=== PATIENT | female | born 1955 | race Caucasian/White ===

== ENCOUNTER 2017-02-27 15:56 | Outpatient (RCR) | payer OTHER ==
[~2017-02-27 15:56] MED LIST: ACIPHEX20 MG PO; ALBUTEROL0.63 MG/3; ASPIRIN CHEW81 MG PO; ASPIRIN325 MG PO; ATENOLOL; ATENOLOL50 MG PO; COMBIVENT RESPIM4 GM IH; LOVASTATIN20 MG PO; NITROFURANTOIN100 MG PO; NITROGLYCERIN0.4 MG PO; NITROGLYCERIN2.5 MG PO; PLAVIX75 MG PO; PREDNISONE10 MG PO; PREDNISONE20 MG PO; RANEXA500 MG PO; SYMBICORT 16010.2 GM; Z.0.ACIPHEX20 MG; Z.0.ASPIRIN CHEW81 M; Z.0.COMBIVENT INH14.; Z.0.CRESTOR5 MG; ZITHROMAX250 MG PO; [UNRECOGNIZED DRUG - OTHER] PO; [UNRECOGNIZED DRUG - OTHER] PO; nitroglycerin PO
== END 2017-03-26 ==
LOC: PT 15:56
PROVIDERS: ATTEND Specialist
DX: M75.42 Impingement syndrome of left shoulder (principal); M75.41 Impingement syndrome of right shoulder; M25.512 Pain in left shoulder; M25.511 Pain in right shoulder; M25.612 Stiffness of left shoulder, not elsewhere classified; M25.611 Stiffness of right shoulder, not elsewhere classified; M62.81 Muscle weakness (generalized)

== ENCOUNTER 2017-04-15 00:34 | Emergency (ER) | payer OTHER ==
[~2017-04-15] VITALS: Ht 172.7 cm; Wt 67.6 kg
[2017-04-15] MEDS ORDERED: PANTOPRAZOLE 40 MG 10ML VIAL IV STA (00:59)
[2017-04-15] MEDS ORDERED: SODIUM CHLORIDE 0.9% 1000ML 1,000 ML IV STA (00:59)
[2017-04-15] MEDS ORDERED: ONDANSETRON HCL INJ 2 MG/ML VIAL IV STA (00:59)
[2017-04-15 01:14] LABS: BASOPHILS # (AUTO) 0.1 (0.0-0.1); BASOPHILS % 0.7 % (0.0-1.0); BILIRUBIN,URINE NEGATIVE (NEGATIVE); EOSINOPHILS # (AUTO) 0.2 (0.0-0.4); EOSINOPHILS % 2.2 % (0.0-6.0); HEMATOCRIT 42.4 % (34.2-44.1); HEMOGLOBIN 14.6 g/dL (12.0-16.0); KETONES,URINE NEGATIVE (NEGATIVE); LEUKOCYTE ESTERASE ,URINE TRACE (NEGATIVE); LYMPHOCYTES # (AUTO) 2.8 (1.0-3.2); LYMPHOCYTES % 28.8 % (18.0-39.1); MEAN CORPUSCULAR HEMOGLOBIN 32.7 pg (28-32); MEAN CORPUSCULAR HGB CONC 34.4 g/dL (31-35); MEAN CORPUSCULAR VOLUME 95.1 fL (81-99); MONOCYTES % 9.7 % (4.4-11.3); NEUTROPHILS # (AUTO) 5.7 (2.1-6.9); NEUTROPHILS % 58.3 % (38.7-80.0); NITRITE,URINE NEGATIVE (NEGATIVE); PLATELET COUNT 263 x10e3/uL (140-360); PROTEIN,URINE DIPSTICK NEGATIVE (NEGATIVE); RED BLOOD COUNT 4.46 x10e6/uL (3.6-5.1); RED CELL DISTRIBUTION WIDTH 11.7 % (11.7-14.4); URINE UROBILINOGEN 4 mg/dL (0.2 - 1)
[2017-04-15 01:15] LABS: CLARITY,URINE CLEAR (CLEAR); COLOR,URINE YELLOW (YELLOW)
[2017-04-15 01:20] LABS: AMPHETAMINES SCREEN,URINE NEGATIVE (NEGATIVE); BENZODIAZEPINES SCREEN,URINE NEGATIVE (NEGATIVE); PHENCYCLIDINE SCREEN,URINE NEGATIVE (NEGATIVE)
[2017-04-15 01:22] LABS: BACTERIA,URINE RARE /HPF; EPITHELIAL CELLS,URINE RARE /LPF; MUCUS,URINE FEW (RARE); RBC,URINE 0-5 /HPF (0-5); WBC,URINE (MAN) 0-5 /HPF (0-5)
[2017-04-15 01:24] LABS: INR 0.86; PARTIAL THROMBOPLASTIN TIME 30.4 seconds (23.8-35.5); PROTHROMBIN TIME 12.2 seconds (11.9-14.5)
[2017-04-15 01:32] LABS: ALANINE AMINOTRANSFERASE 10 IU/L (0-55); ALBUMIN 3.8 g/dL (3.5-5.0); ALBUMIN/GLOBULIN RATIO 1.3 (0.8-2.0); ALKALINE PHOSPHATASE 119 IU/L (40-150); AMYLASE 43 U/L (25-125); ANION GAP 12.9 mmol/L (8-16); BLOOD UREA NITROGEN 16 mg/dL (7-26); BUN/CREATININE RATIO 20 (6-25); CALCIUM 9.2 mg/dL (8.4-10.2); CARBON DIOXIDE 22 mmol/L (22-29); CHLORIDE 109 mmol/L (98-107); CREATINE KINASE 81 IU/L (29-168); EST GLOMERULAR FILTRATION RATE > 60 ML/MIN (60-); GLUCOSE 109 mg/dL (74-118); LIPASE 21 U/L (8-78); MAGNESIUM 2.1 MG/DL (1.3-2.1); POTASSIUM 3.9 mmol/L (3.5-5.1); SODIUM 140 mmol/L (136-145)
[2017-04-15 01:52] LABS: THYROID STIMULATING HORMONE 4.227 uIU/mL (0.350-4.940)
--- NOTE | 2017-04-15 02:09 | Diagnostic Imaging Report ---
EXAMINATION: CHEST 2 VIEWS INDICATION: Chest pain, nausea, vomiting COMPARISON: 11/08/2015 FINDINGS: TUBES and LINES: None. LUNGS: Hyperinflation of the lungs with areas of bullous changes at the lung bases. Minimal right mid lung and right lung base scarring. There is no evidence of pneumonia or pulmonary edema. PLEURA: No pleural effusion or pneumothorax. HEART AND MEDIASTINUM: The cardiomediastinal silhouette is unremarkable. BONES AND SOFT TISSUES: No acute osseous lesion. Soft tissues are unremarkable. UPPER ABDOMEN: No free air under the diaphragm. IMPRESSION: No acute thoracic abnormality. Signed by: Dr. Son Skelton M.D. on 04/15/2017 2:06 AM
--- NOTE | 2017-04-15 02:11 | Diagnostic Imaging Report ---
EXAM: ABDOMEN COMP INCL UPR or DECUB DATE: 04/15/2017 12:59 AM Time stamp on exam: 0107 hours INDICATION: Nausea, vomiting COMPARISON: CTA of the abdomen and pelvis on 12/02/2015 FINDINGS: LINES/TUBES: None BOWEL PATTERN: No evidence for obstruction. SOFT TISSUES: Cholecystectomy clips. There are 2 S1 and to the symphysis anchor screws present LUNG BASES: Lung bases are clear with minimal blunting of the right costophrenic angle BONES: No acute findings. IMPRESSION: Nonobstructive bowel gas pattern. Signed by: Dr. Son Skelton M.D. on 04/15/2017 2:08 AM
--- NOTE | 2017-04-15 03:51 | Diagnostic Imaging Report ---
EXAM: CT Abdomen and Pelvis WITH contrast INDICATION: Abdominal pain, nausea, vomiting COMPARISON: None. TECHNIQUE: Abdomen and pelvis were scanned utilizing a multidetector helical scanner from the lung base to the pubic symphysis after administration of IV contrast. Coronal and sagittal reformations were obtained. Routine protocol was performed. Scan was performed when during portal venous phase. IV CONTRAST: 100 mL of Isovue-370 ORAL CONTRAST: Water RADIATION DOSE: Total DLP: 265 mGy*cm Estimated effective dose: (DLP x 0.015 x size factor) mSv COMPLICATIONS: None FINDINGS: LINES and TUBES: None. LOWER THORAX: Small hiatal hernia HEPATOBILIARY: No focal hepatic lesions. No biliary ductal dilation. GALLBLADDER: There are cholecystectomy clips. SPLEEN: No splenomegaly. PANCREAS: No focal masses or ductal dilatation. ADRENALS: No adrenal nodules KIDNEYS/URETERS: Kidneys enhance symmetrically. No hydronephrosis. No cystic or solid mass lesions. No stones. GI TRACT: No abnormal distention, wall thickening, or evidence of bowel obstruction. Appendix is not clearly identified. There is however no fat stranding or adenopathy in the right lower quadrant to suggest appendicitis. PELVIC ORGANS/BLADDER: There are postop changes of hysterectomy and bilateral oophorectomies. LYMPH NODES: No lymphadenopathy. VESSELS: There is moderate atherosclerotic disease in the aorta and major arterial branches. PERITONEUM / RETROPERITONEUM: No free air or fluid. BONES: There are mild degenerative changes in the lumbar spine. SOFT TISSUES: Unremarkable. IMPRESSION: 1. No evidence of acute intra-abdominal or pelvic abnormality. Signed by: Dr. Son Skelton M.D. on 04/15/2017 3:48 AM
--- NOTE | 2017-04-15 04:27 | Diagnostic Imaging Report ---
EXAMINATION: Head CT without contrast. HISTORY:Headache, nausea and vomiting. COMPARISON:CT brain from 11/08/2015. TECHNIQUE: Multidetector axial images were obtained from the foramen magnum to the vertex without contrast. The images were reconstructed using brain and bone algorithms. Thin section brain images were reformatted into coronal and sagittal planes. Intravenous contrast: None IMAGE QUALITY: Acceptable. FINDINGS: Skull/scalp: No abnormality. Parenchyma: Nonspecific bilateral frontoparietal confluent and patchy white matter hypodensity are likely related to small vessel ischemic changes. No acute hemorrhage, mass or acute major vascular territorial infarct. Arteries: Atherosclerotic calcification in bilateral carotid siphon. Dural sinuses: No abnormal density suggestive of thrombosis. Ventricles: No hydrocephalus or displacement. Extra-axial spaces: No abnormal density. Brain volume: Normal for age. Craniocervical junction: No mass, Chiari malformation, or basilar invagination. Sella: No mass. Paranasal/mastoid sinuses: Imaged portions unremarkable. IMPRESSION: No acute intracranial abnormality. Mild to moderate supratentorial white matter microvascular ischemic changes. Signed by: Dr. Kia Castellanos M.D. on 04/15/2017 4:24 AM
[2017-04-15] MEDS ORDERED: MORPHINE SULFATE 2 MG/ML SYR IV STA (04:50)
[2017-04-15] MEDS ORDERED: PROMETHAZINE 12.5MG/ NACL 0.9% 12.5 MG/50 ML BAG IV ONE (05:00)
[2017-04-15 05:26] LABS: CREATINE KINASE MB 1.2 ng/mL (0.00-5.00)
[2017-04-15] MEDS ORDERED: DICYCLOMINE HCL20 MG PO (05:51)
[2017-04-15] MEDS ORDERED: ZOFRAN ODT4 MG PO (05:51)
[2017-04-15 06:01] VITALS: BP 136/75
[2017-04-15] MEDS ORDERED: SODIUM CHLORIDE 0.9% 50ML 50 ML ONE (09:23)
[2017-04-15] MEDS ORDERED: IOPAMIDOL 370 MG/ML 200 ML INFUS..BTL INJ ONE (09:23)
== END 2017-04-15 06:07 | disposition home or self-care (01) ==
LOC: ER 00:36
DX: R10.816 Epigastric abdominal tenderness (principal); R10.84 Generalized abdominal pain; R11.2 Nausea with vomiting, unspecified; M75.22 Bicipital tendinitis, left shoulder; I10 Essential (primary) hypertension; I51.9 Heart disease, unspecified; J44.9 Chronic obstructive pulmonary disease, unspecified; I50.9 Heart failure, unspecified; I25.10 Atherosclerotic heart disease of native coronary artery without angina pectoris; K21.9 Gastro-esophageal reflux disease without esophagitis; I25.2 Old myocardial infarction
CPT/HCPCS: 36415; 70450; 71020; 74020; 74177; 80053; 80307; 81001; 82150; 82550; 82553; 83690; 83735; 83880; 84443; 84484; 85025; 85610; 85730; 87086; 87400; 93005; 96360; 96374; 96376; 99284; J2270; J2405; J2550; J7030; Q9967; 71046; 74021

== ENCOUNTER → 2017-07-14 | Outpatient (CLI) | payer OTHER ==
[~2017-07-14] MED LIST changes: +DICYCLOMINE HCL20 MG PO; +ZOFRAN ODT4 MG PO
--- NOTE | 2017-07-14 12:42 | Diagnostic Imaging Report ---
PROCEDURE: X-RAY UPPER GI SERIES WITH AIR CONTRAST TECHNIQUE: Effervescent crystals and barium were ingested by mouth. Multiple fluoroscopic spot images of the esophagus, stomach, and proximal small bowel were obtained. Fluoroscopy time: 2 minutes Air Kerma: 58.46 mGy COMPARISON: CT abdomen and pelvis with contrast 04/15/2017.. INDICATIONS: DYSPHAGIA FINDINGS: ESOPHAGUS: Motility: Within normal limits. Mucosa: Unremarkable. Distensibility: Normal. GASTROESOPHAGEAL JUNCTION: Small sliding hiatal hernia. GASTROESOPHAGEAL REFLUX: None observed. STOMACH: Normally distensible and demonstrates normal contours and mucosal pattern. Mild prominence of the mucosal folds is a consequence of inadequate distention. Postsurgical changes of Funmilayo fundoplication. DUODENUM: Bulb and sweep are normal. Duodenal-jejunal junction is in the normal expected position. IMPRESSION: Post surgical changes of fundoplication with recurrent hiatal hernia. Dictated by: David Osuna M.D. on 07/14/2017 at 12:43 Electronically approved by: David Osuna M.D. on 07/14/2017 at 12:43
== END ==
LOC: DX 08:19
PROVIDERS: ATTEND Internal Medicine Gastroenterology
DX: R13.10 Dysphagia, unspecified (principal); Z68.23 Body mass index [BMI] 23.0-23.9, adult; Z71.3 Dietary counseling and surveillance; F17.200 Nicotine dependence, unspecified, uncomplicated
CPT/HCPCS: 74246

== ENCOUNTER 2017-09-25 21:57 | Observation (INO) | payer OTHER ==
[~2017-09-25] VITALS: Ht 172.7 cm; Wt 68.5 kg
[2017-09-25 23:04] LABS: BASOPHILS # (AUTO) 0.1 (0.0-0.1); BASOPHILS % 0.8 % (0.0-1.0); EOSINOPHILS # (AUTO) 0.3 (0.0-0.4); EOSINOPHILS % 3.1 % (0.0-6.0); HEMATOCRIT 42.3 % (34.2-44.1); LYMPHOCYTES # (AUTO) 3.1 (1.0-3.2); LYMPHOCYTES % 34.2 % (18.0-39.1); MEAN CORPUSCULAR HEMOGLOBIN 33.1 pg (28-32); MEAN CORPUSCULAR HGB CONC 35.5 g/dL (31-35); MEAN CORPUSCULAR VOLUME 93.4 fL (81-99); MONOCYTES % 10.4 % (4.4-11.3); NEUTROPHILS # (AUTO) 4.7 (2.1-6.9); NEUTROPHILS % 51.3 % (38.7-80.0); PLATELET COUNT 229 x10e3/uL (140-360); RED BLOOD COUNT 4.53 x10e6/uL (3.6-5.1); RED CELL DISTRIBUTION WIDTH 11.7 % (11.7-14.4)
[2017-09-25 23:09] LABS: PROTHROMBIN TIME 12.4 seconds (11.9-14.5)
[2017-09-25 23:10] LABS: PARTIAL THROMBOPLASTIN TIME 31.4 seconds (23.8-35.5)
[2017-09-25 23:19] LABS: ALANINE AMINOTRANSFERASE 16 IU/L (0-55); ALBUMIN/GLOBULIN RATIO 1.5 (0.8-2.0); ALKALINE PHOSPHATASE 123 IU/L (40-150); BLOOD UREA NITROGEN 14 mg/dL (7-26); CALCIUM 9.4 mg/dL (8.4-10.2); CARBON DIOXIDE 21 mmol/L (22-29); CHLORIDE 109 mmol/L (98-107); CREATINE KINASE 104 IU/L (29-168); GLUCOSE 123 mg/dL (74-118); MAGNESIUM 2.3 MG/DL (1.3-2.1); SODIUM 140 mmol/L (136-145)
[2017-09-25 23:29] LABS: BUN/CREATININE RATIO 18 (6-25)
[2017-09-25 23:32] LABS: CLARITY,URINE CLEAR (CLEAR); COLOR,URINE YELLOW (YELLOW); KETONES,URINE NEGATIVE (NEGATIVE); LEUKOCYTE ESTERASE ,URINE NEGATIVE (NEGATIVE); NITRITE,URINE NEGATIVE (NEGATIVE); PROTEIN,URINE DIPSTICK NEGATIVE (NEGATIVE)
[2017-09-25 23:33] LABS: BACTERIA,URINE FEW /HPF; BILIRUBIN,URINE NEGATIVE (NEGATIVE); EPITHELIAL CELLS,URINE FEW /LPF; MUCUS,URINE MANY (RARE); RBC,URINE 0-5 /HPF (0-5); URINE UROBILINOGEN 0.2 mg/dL (0.2 - 1)
--- NOTE | 2017-09-25 23:36 | Diagnostic Imaging Report ---
EXAM: CHEST SINGLE (PORTABLE), AP 1 view INDICATION: Midsternal chest pain COMPARISON: PA and lateral view of the chest April 15, 2017 FINDINGS: LINES/TUBES: None LUNGS: No consolidations or edema. Stable scarring right midlung. PLEURA: No effusions or pneumothorax. HEART AND MEDIASTINUM: Normal size and contour. BONES AND SOFT TISSUES: No acute findings. IMPRESSION: No acute thoracic abnormality. Signed by: Dr. Mariela Browne M.D. on 09/25/2017 11:32 PM
[2017-09-25] MEDS ORDERED: NITROGLYCERIN 2% OINT 1 GM PKT TOP ONE (23:45)
[2017-09-25 23:53] LABS: EST GLOMERULAR FILTRATION RATE > 60 ML/MIN (60-)
[2017-09-26] VITALS (8 sets, daily range): BP systolic 121–165; BP diastolic 73–90
[2017-09-26] MEDS ORDERED: MORPHINE SULFATE 2 MG/ML SYR IV STA
[2017-09-26] MEDS: FAMOTIDINE 20 MG/2 ML VIAL IV SCH ×2 (01:00→13:38)
[2017-09-26] MEDS ORDERED: ONDANSETRON HCL INJ 2 MG/ML VIAL IV PRN (01:00)
[2017-09-26] MEDS ORDERED: IPRATROPIUM BROMIDE 0.02% 2.5 ML NEB NEB PRN (01:00)
[2017-09-26] MEDS ORDERED: ALBUTEROL SULF 0.083% NEB SOLN 3 ML NEB NEB PRN ×2 (01:00→09:45)
[2017-09-26] MEDS: IPRATROPIUM/ALBUTEROL SULFATE 4 GM INH INH SCH ×4 (01:50→19:15)
[2017-09-26] MEDS ORDERED: NITROGLYCERIN 2% OINT 1 GM PKT TOP SCH (06:00)
[2017-09-26 06:59] LABS: CREATINE KINASE 97 IU/L (29-168)
[2017-09-26] MEDS ORDERED: ASPIRIN 81 MG ENTERIC COATED PO SCH (09:00)
[2017-09-26] MEDS ORDERED: ONDANSETRON HCL 4 MG ORAL DISINTEGRATING TAB PO PRN (09:45)
[2017-09-26] MEDS ORDERED: DICYCLOMINE HCL 20 MG TAB PO PRN (09:45)
[2017-09-26] MEDS: CLOPIDOGREL BISULFATE 75 MG TAB PO SCH (10:22)
[2017-09-26] MEDS ORDERED: ASPIRIN 81 MG CHEW TAB PO SCH (10:30)
--- NOTE | 2017-09-26 10:40 | History and Physical ---
She is a 62-year-old female patient of mine presented to the emergency room with the complaint of retrosternal chest pain and chest tightness. HISTORY OF PRESENT ILLNESS: Ms. Jacqueline Newsome is a 62-year-old female patient with a previous significant history of coronary artery disease and active smoker, COPD, severe GERD, anxiety, presented to the emergency room with the complaint of retrosternal chest tightness. The patient is feeling like she is being squeezed by somebody. The patient also has mild shortness of breath along with chest pain. The patient said the pain is radiating to her back. The patient denies any fever. The patient had similar symptoms in the past. The patient had significant medical history. The patient had multiple cardiac caths done. The patient is giving a vague history that probably she had a last cardiac cath done at [facility] by . She had some lesions, but advised to have medical therapy because of technical inoperable issues. PAST MEDICAL HISTORY: Other medical history is hypertension, heart disease, GERD, kidney stones, back pain. PAST SURGICAL HISTORY: Appendectomy, , carpal tunnel surgery, cholecystectomy, colonoscopy, hiatal hernia repair, hysterectomy, tonsillectomy. MEDICATIONS: See from the list. SOCIAL HISTORY: Patient smokes. Denies any alcohol. ALLERGIES: THE PATIENT IS ALLERGIC TO LATEX. REVIEW OF SYSTEMS: As per history of present illness. Chest pain and tightness. PHYSICAL EXAMINATION VITALS: Temperature 98, pulse 80, respirations 16, blood pressure 110/72. HEENT: Normocephalic and atraumatic. NECK: Supple. No lymphadenopathy. LUNGS: Bilateral fair air entry. No rales. No rhonchi. HEART: S1 and S2 regular. Systolic murmur present. ABDOMEN: Bowel sounds are normal. NEUROLOGICAL: No focal neurological deficits. The patient is alert and oriented times 3. EKG with ST-elevation in septal leads. ADMITTING IMPRESSION/DIAGNOSES 1. Unstable angina: Rule out myocardial infarction. 2. Chronic obstructive pulmonary disease. 3. History of coronary artery disease. The patient was admitted with the above diagnoses. Will do serial cardiac enzymes. Obtain cardiology consultation with Dr. Silvestre Egn. The patient will get probably a stress test and heart cath. Job#: [id number] [place]
[2017-09-26] MEDS: BUDESONIDE/FORMOTEROL 160/4.5MCG INHALER INH SCH ×2 (11:00→19:15)
[2017-09-26] MEDS: MORPHINE SULFATE 2 MG/ML SYR IV PRN ×2 (11:04→19:15)
[2017-09-26] MEDS ORDERED: CLOPIDOGREL BISULFATE 75 MG TAB PO ONE (13:00)
--- NOTE | 2017-09-26 13:23 | Consultation ---
DATE OF CONSULTATION: September 26, 2017 CARDIAC CONSULTATION REASON FOR CONSULTATION: Chest pain. HISTORY: This consult is done on behalf of Dr. Silvestre Eng, who is her telephoto engineer. This is a 62-year-old lady who is known with multiple health problems including COPD, smoker, severe GERD and anxiety. Patient came to this institution with chest pain. She had several admissions in the last few years for chest pain. She had at least 3 or 4 cardiac catheterizations. Most recent one was in August last year by Dr. Pratt. She had been told she has 70% and 80% disease, but they are in very small arteries and she does not need surgery and she does not need stents. The patient is followed also by Dr. Silvestre Eng. She was in [facility] when she had the cardiac cath. She had admission in April to [facility] again with chest pain. Patient was in her usual status of health. She described her chest pain seems to be very typical, retrosternal, radiating to her back and to her jaw. Surprisingly about her symptoms, they happened in episodes. They come for 1 or 2 months and then disappear. Latest exacerbation was in last year August and in April of this year. Now, again, she started having the same pain. Pain can come anytime with and without activity. It is very typical in location and radiation to the jaw. The patient took nitroglycerin, which helped her. She takes usually nitroglycerin patch at home. She takes also Plavix. Unfortunately, she continues to smoke. REVIEW OF SYSTEMS: Extensive to all systems. Only pertinent positive and negative ones will be mentioned. CARDIAC: As per above. PULMONARY: No recent travel. No pleuritic chest pain. No cough. No hemoptysis. She does have also some pain on the right lower chest. She was seen by Dr. Rex Eng, and she had negative CT scan. GI: Severe GERD. No hematemesis. No melena. : Increased frequency of urination. MUSCULAR: Aches and pain. NEUROLOGICAL: No seizure activity. Occasional headaches. ENDOCRINE: No diabetes mellitus. HEENT: Congestion. PAST MEDICAL HISTORY 1. Hypertension. 2. GERD. 3. Kidney stone. 4. Appendectomy. 5. . 6. Carpal tunnel surgery. 7. Cholecystectomy. 8. Hernia repair. 9. Back pain. 10. Chest pain with at least 4 cardiac caths over the last few years. ALLERGIES: LATEX. FAMILY HISTORY: Father had myocardial infarction at a young age at age 43. A sister had already bypass in her 60s. One brother had pacemaker. SOCIAL HISTORY: She is . She is a smoker. Not an alcohol drinker. PHYSICAL EXAMINATION GENERAL: Well-built lady in no acute distress. VITALS: Blood pressure 130/80. Heart rate of 80. Respiratory rate of 18. HEENT: Pupils are equal and reactive. NECK: No elevation of jugular venous pulsation. No bruit. CHEST: Clear to auscultation and percussion. HEART: PMI at 5th left intercostal space. Normal 1st and 2nd heart sounds. ABDOMEN: Soft with good bowel sounds. No organomegaly. No abdominal bruits. EXTREMITIES: No cyanosis. No clubbing. No edema. NEUROLOGIC: Awake, alert, oriented. No motor or sensory deficits. HOME MEDICATIONS: Combivent, Symbicort, dicyclomine, Zofran, atenolol 50 mg a day, nitroglycerin patch, Aciphex, Plavix 75 mg a day. IMPRESSION AND PLAN 1. Chest pain, seems to be very typical for angina. However, workup is negative by repeated cardiac cath and stress test, although with the last cardiac cath, she was told she got 2 diseased arteries but in small branches. 2. Gastroesophageal reflux disease. 3. Anxiety. 4. Hypertension. 5. Kidney stone. 6. Smoker. 7. Chronic obstructive pulmonary disease. Cardiac-mclain, serial cardiac enzymes to be done. Will try to get the cardiac cath from the other physician and other institution. Patient needs to have stress test at least. However, if the previous cath shows significant disease, then further steps to be done. All this discussed and explained to the patient and her . Questions are answered. Job#: [id number]
[2017-09-26 14:58] LABS: CREATINE KINASE MB 0.8 ng/mL (0-5.0)
[2017-09-26] MEDS: NITROGLYCERIN 6.5 MG PO SCH ×2 (15:00→20:58)
[2017-09-26] MEDS ORDERED: NITROGLYCERIN 0.4 MG SUBL SL SCH (15:00)
[2017-09-26] MEDS ORDERED: NON-FORMULARY MEDICATION (Lovastatin 20 MG) PO SCH (21:00)
[2017-09-26] MEDS ORDERED: SIMVASTATIN 20 MG TAB PO SCH (21:00)
[2017-09-27] MEDS: MORPHINE SULFATE 2 MG/ML SYR IV PRN (01:06)
[2017-09-27] MEDS: FAMOTIDINE 20 MG/2 ML VIAL IV SCH ×2 (01:06→13:00)
[2017-09-27 04:00] VITALS: BP 151/86
[2017-09-27 06:48] LABS: ALANINE AMINOTRANSFERASE 14 IU/L (0-55); ALBUMIN 3.8 g/dL (3.5-5.0); ALBUMIN/GLOBULIN RATIO 1.5 (0.8-2.0); ALKALINE PHOSPHATASE 111 IU/L (40-150); BLOOD UREA NITROGEN 16 mg/dL (7-26); BUN/CREATININE RATIO 20 (6-25); CALCIUM 9.2 mg/dL (8.4-10.2); CARBON DIOXIDE 27 mmol/L (22-29); CHLORIDE 103 mmol/L (98-107); CREATININE, SERUM 0.81 mg/dL (0.57-1.11); EST GLOMERULAR FILTRATION RATE > 60 ML/MIN (60-); GLUCOSE 89 mg/dL (74-118); SODIUM 136 mmol/L (136-145)
[2017-09-27 07:00] VITALS: BP 148/88
[2017-09-27 07:07] LABS: BASOPHILS # (AUTO) 0.1 (0.0-0.1); BASOPHILS % 0.7 % (0.0-1.0); EOSINOPHILS # (AUTO) 0.2 (0.0-0.4); EOSINOPHILS % 3.1 % (0.0-6.0); HEMATOCRIT 41.2 % (34.2-44.1); HEMOGLOBIN 14.5 g/dL (12.0-16.0); LYMPHOCYTES # (AUTO) 2.2 (1.0-3.2); MEAN CORPUSCULAR HEMOGLOBIN 32.9 pg (28-32); MEAN CORPUSCULAR HGB CONC 35.2 g/dL (31-35); MEAN CORPUSCULAR VOLUME 93.4 fL (81-99); MONOCYTES # (AUTO) 0.7 (0.2-0.8); MONOCYTES % 9.4 % (4.4-11.3); NEUTROPHILS # (AUTO) 4.1 (2.1-6.9); NEUTROPHILS % 56.4 % (38.7-80.0); PLATELET COUNT 220 x10e3/uL (140-360); RED BLOOD COUNT 4.41 x10e6/uL (3.6-5.1); RED CELL DISTRIBUTION WIDTH 11.4 % (11.7-14.4)
[2017-09-27 07:15] LABS: CHOL/HDL RATIO 5.3 (3.0-3.6); THYROID STIMULATING HORMONE 2.975 uIU/mL (0.350-4.940)
[2017-09-27] MEDS ORDERED: PANTOPRAZOLE SOD 40 MG TABEC PO SCH (07:30)
[2017-09-27 08:00] VITALS: BP 148/88
[2017-09-27] MEDS: BUDESONIDE/FORMOTEROL 160/4.5MCG INHALER INH SCH (08:15)
[2017-09-27] MEDS: IPRATROPIUM/ALBUTEROL SULFATE 4 GM INH INH SCH (08:15)
[2017-09-27] MEDS: CLOPIDOGREL BISULFATE 75 MG TAB PO SCH (08:41)
[2017-09-27] MEDS: NITROGLYCERIN 6.5 MG PO SCH (08:49)
[2017-09-27] MEDS ORDERED: ATENOLOL 50 MG TAB PO SCH (09:00)
[2017-09-27] MEDS ORDERED: ASPIRIN 81 MG CHEW TAB PO SCH (09:00)
[2017-09-27] MEDS ORDERED: CLOPIDOGREL BISULFATE 75 MG TAB PO SCH (09:00)
[2017-09-27] MEDS ORDERED: NITROGLYCERIN 0.3 MG/HR PATCH TD SCH (13:00)
[2017-09-27] MEDS ORDERED: PLAVIX75 MG PO (13:22)
[2017-09-27] MEDS ORDERED: NITRO-DUR1 EAC1 TD (13:23)
--- NOTE | 2017-09-27 15:48 | Discharge Summary ---
A 62-year-old female patient of mine who presented with the complaint of chest pain. ADMITTING DIAGNOSES 1. Unstable angina. Rule out myocardial infarction. 2. Chest pain. 3. Coronary artery disease. 4. Chronic obstructive pulmonary disease. 5. Gastroesophageal reflux disease. 6. Hypertension. 7. Lung nodule. HOSPITAL COURSE: The patient was admitted and had serial EKG. Cardiac enzymes were done and cardiology consultation with Dr. Silvestre Serna was requested as the patient had Dr. Silvestre Serna as primary cut off saw grader for the patient. Dr. Solares was covering for Dr. Silvestre Serna and the patient was evaluated by Dr. Solares. The patient was treated with aspirin and beta debbie, Plavix and nitroglycerin. The patient's enzymes were negative. EKG was unremarkable. The patient had cath done last year in 2017 in April. The patient was found to have 40% to 60% RCA mid RCA lesion. The patient had less than 70% lesion in the small vessels, diagonals. The patient was treated with medical therapy and stopped smoking. At this time, the patient was advised to have a stress test. The patient elected to have it as an outpatient with Dr. Silvestre Serna. The patient will be discharged home on Atenolol, Plavix, nitroglycerin, simvastatin, aspirin, and pantoprazole. The patient will be followed up as an outpatient. OLAF SERNA MD Job#: [id number]
== END 2017-09-27 13:58 | disposition home or self-care (01) ==
LOC: ER 21:57 → ERHOLD 09-26 01:03 → IMCU 09-26 02:36 → OBSVTOIN 09-27 10:47 → INTOOBSV 09-27 10:47
PROVIDERS: ADMIT Internal Medicine; ATTEND Internal Medicine
DX: I25.110 Atherosclerotic heart disease of native coronary artery with unstable angina pectoris (principal); I10 Essential (primary) hypertension; J44.9 Chronic obstructive pulmonary disease, unspecified; F17.211 Nicotine dependence, cigarettes, in remission; K21.9 Gastro-esophageal reflux disease without esophagitis; F41.9 Anxiety disorder, unspecified; R91.1 Solitary pulmonary nodule; Z87.442 Personal history of urinary calculi; Z79.2 Long term (current) use of antibiotics; Z79.82 Long term (current) use of aspirin; Z91.040 Latex allergy status; Z91.09 Other allergy status, other than to drugs and biological substances
CPT/HCPCS: 36415 ×3; 71045; 80053 ×2; 80061; 81001; 82550 ×2; 82553 ×2; 83735; 83880; 84443; 84484 ×2; 85025 ×2; 85610; 85730; 87086; 93005; 93306; 94640; 99284; G0378 ×2; J2270 ×2; J2405; S0164

== ENCOUNTER 2017-12-09 17:05 | Emergency (ER) | payer OTHER ==
[~2017-12-09] VITALS: Ht 172.7 cm; Wt 67.1 kg
[~2017-12-09 17:05] MED LIST changes: +NITRO-DUR1 EAC1 TD
[2017-12-09] MEDS ORDERED: AMLODIPINE BESY10 MG PO (17:18)
[2017-12-09] MEDS ORDERED: SYMBICORT 16010.2 GM INH (17:18)
[2017-12-09] MEDS ORDERED: AMITRIPTYLINE H25 MG PO (17:18)
== END 2017-12-09 18:13 | disposition left against medical advice (07) ==
LOC: ER 17:05
DX: R51 Headache (principal)

== ENCOUNTER 2017-12-15 12:46 | Inpatient (IN) | payer OTHER ==
[~2017-12-15] VITALS: Ht 172.7 cm; Wt 69.1 kg
[~2017-12-15 12:46] MED LIST changes: +AMITRIPTYLINE H25 MG PO; +AMLODIPINE BESY10 MG PO; +SYMBICORT 16010.2 GM INH
[2017-12-15] MEDS ORDERED: NITROGLYCERIN 0.4 MG SUBL SL PRN (13:15)
[2017-12-15] MEDS ORDERED: ASPIRIN 81 MG CHEW TAB PO ONE ×3 (13:15→14:30)
[2017-12-15] MEDS: METHYLPREDNISOLONE SOD SUCC 125 MG/2ML VIAL IV SCH ×2 (13:40→20:05)
[2017-12-15] MEDS: CEFTRIAXONE SOD 1 GM VIAL IV SCH (13:40)
[2017-12-15] MEDS ORDERED: CLOPIDOGREL BISULFATE 75 MG TAB PO ONE (14:00)
[2017-12-15 14:10] LABS: BASOPHILS % 0.4 % (0.0-1.0); EOSINOPHILS # (AUTO) 0.2 (0.0-0.4); EOSINOPHILS % 1.9 % (0.0-6.0); HEMATOCRIT 39.8 % (34.2-44.1); HEMOGLOBIN 14.5 g/dL (12.0-16.0); LYMPHOCYTES # (AUTO) 3.5 (1.0-3.2); LYMPHOCYTES % 37.3 % (18.0-39.1); MEAN CORPUSCULAR HEMOGLOBIN 33.6 pg (28-32); MEAN CORPUSCULAR HGB CONC 36.4 g/dL (31-35); MEAN CORPUSCULAR VOLUME 92.1 fL (81-99); MONOCYTES # (AUTO) 0.8 (0.2-0.8); MONOCYTES % 8.3 % (4.4-11.3); NEUTROPHILS # (AUTO) 4.8 (2.1-6.9); NEUTROPHILS % 51.4 % (38.7-80.0); PLATELET COUNT 244 x10e3/uL (140-360); RED BLOOD COUNT 4.32 x10e6/uL (3.6-5.1); RED CELL DISTRIBUTION WIDTH 11.3 % (11.7-14.4)
[2017-12-15 14:19] LABS: INR 0.88; PROTHROMBIN TIME 12.8 seconds (11.9-14.5)
[2017-12-15 14:20] LABS: PARTIAL THROMBOPLASTIN TIME 30.2 seconds (23.8-35.5)
[2017-12-15 14:30] LABS: ALANINE AMINOTRANSFERASE 14 IU/L (0-55); ALBUMIN 3.9 g/dL (3.5-5.0); ALBUMIN/GLOBULIN RATIO 1.4 (0.8-2.0); ALKALINE PHOSPHATASE 122 IU/L (40-150); ANION GAP 14.7 mmol/L (8-16); BLOOD UREA NITROGEN 12 mg/dL (7-26); BUN/CREATININE RATIO 17 (6-25); CALCIUM 9.2 mg/dL (8.4-10.2); CARBON DIOXIDE 22 mmol/L (22-29); CHLORIDE 107 mmol/L (98-107); CHOL/HDL RATIO 4.7 (3.0-3.6); CHOLESTEROL 169 MD/DL (0-199); CREATINE KINASE 70 IU/L (29-168); CREATININE, SERUM 0.71 mg/dL (0.57-1.11); EST GLOMERULAR FILTRATION RATE > 60 ML/MIN (60-); GLUCOSE 87 mg/dL (74-118); HDL CHOLESTEROL 36 MG/DL (40-60); LDL CHOLESTEROL 94 MG/DL (60-130); POTASSIUM 3.7 mmol/L (3.5-5.1); SODIUM 140 mmol/L (136-145); TRIGLYCERIDES 195 MG/DL (0-149)
--- NOTE | 2017-12-15 14:49 | Diagnostic Imaging Report ---
EXAMINATION: CHEST 2 VIEWS INDICATION: Shortness of breath. COPD exacerbation COMPARISON: September 25, 2017 FINDINGS: TUBES and LINES: None. LUNGS: Lungs are well inflated. Chronic appearing changes in the lungs with what appears to be scarring/atelectasis most pronounced in the right midlung. There is no evidence of pneumonia or pulmonary edema. PLEURA: No pleural effusion or pneumothorax. HEART AND MEDIASTINUM: The cardiomediastinal silhouette is unremarkable. BONES AND SOFT TISSUES: No acute osseous lesion. Soft tissues are unremarkable. UPPER ABDOMEN: No free air under the diaphragm. IMPRESSION: Chronic appearing changes in the lungs with what appears to be scarring/atelectasis most pronounced in the right midlung. Signed by: Dr. Martín Degroot M.D. on 12/15/2017 2:44 PM
[2017-12-15] MEDS: ALBUTEROL SULF 0.083% NEB SOLN 3 ML NEB NEB PRN ×2 (15:10→19:40)
[2017-12-15] MEDS: TRAMADOL HCL 50 MG TAB PO PRN ×2 (15:24→21:33)
[2017-12-15 15:32] VITALS: BP 174/97
[2017-12-15 15:37] VITALS: BP 174/97
[2017-12-15 15:58] VITALS: BP 174/97
[2017-12-15 16:42] LABS: ABG HCO3 24 mmol/L (23-28); ABG PCO2 36 mmHg (41-51); ABG PH 7.43 (7.31-7.41); ABG PO2 78 mmHg (80-105)
[2017-12-15 17:21] LABS: BILIRUBIN,URINE NEGATIVE (NEGATIVE); CLARITY,URINE CLEAR (CLEAR); COLOR,URINE YELLOW (YELLOW); KETONES,URINE NEGATIVE (NEGATIVE); LEUKOCYTE ESTERASE ,URINE NEGATIVE (NEGATIVE); NITRITE,URINE NEGATIVE (NEGATIVE); PROTEIN,URINE DIPSTICK NEGATIVE (NEGATIVE); URINE UROBILINOGEN 0.2 mg/dL (0.2 - 1)
[2017-12-15 17:31] LABS: BACTERIA,URINE MODERATE /HPF; EPITHELIAL CELLS,URINE MODERATE /LPF; MUCUS,URINE FEW (RARE)
[2017-12-15] MEDS: BUDESONIDE/FORMOTEROL 160/4.5MCG INHALER INH SCH (19:00)
[2017-12-15 19:35] VITALS: BP 158/77
[2017-12-15 20:00] VITALS: BP 158/77
[2017-12-15] MEDS: ATORVASTATIN 10 MG TAB PO SCH (20:05)
[2017-12-15 23:33] LABS: CREATINE KINASE MB 0.7 ng/mL (0-5.0)
[2017-12-15 23:50] VITALS: BP 138/77
[2017-12-16] VITALS (7 sets, daily range): BP systolic 129–152; BP diastolic 66–84
[2017-12-16] MEDS: CEFTRIAXONE SOD 1 GM VIAL IV SCH ×2 (02:55→13:26)
[2017-12-16] MEDS: TRAMADOL HCL 50 MG TAB PO PRN ×2 (03:12→13:44)
[2017-12-16] MEDS: ALBUTEROL SULF 0.083% NEB SOLN 3 ML NEB NEB PRN ×3 (04:04→11:28)
[2017-12-16 05:26] LABS: CREATINE KINASE 52 IU/L (29-168)
[2017-12-16] MEDS: METHYLPREDNISOLONE SOD SUCC 125 MG/2ML VIAL IV SCH ×3 (06:13→20:57)
[2017-12-16] MEDS: BUDESONIDE/FORMOTEROL 160/4.5MCG INHALER INH SCH ×2 (07:35→19:40)
[2017-12-16] MEDS: AMLODIPINE BESYLATE 10 MG TAB PO SCH (08:32)
[2017-12-16] MEDS: ATENOLOL 50 MG TAB PO SCH (08:33)
[2017-12-16] MEDS: NITROGLYCERIN 0.4 MG PATCH TOP SCH (08:33)
[2017-12-16] MEDS: ACETAMINOPHEN 325 MG TAB PO PRN ×2 (11:34→20:05)
[2017-12-16] MEDS ORDERED: SODIUM CHLORIDE 0.9% 250ML 250 ML ONE (13:05)
[2017-12-16] MEDS: AZITHROMYCIN 500MG/NS 250 ML 250 ML IV SCH (13:26)
--- NOTE | 2017-12-16 13:37 | History and Physical ---
CHIEF COMPLAINTS 1. Shortness of breath. 2. Wheezing. 3. Cough. HPI: This is a 62-year-old female with a past medical history of COPD, hyperlipidemia, hypertension, smoking more than 1 pack per day for more than 25 years. She was in her usual state of health until the patient went to the ER at [facility] in [place] for the same symptoms, cough and shortness of breath. They gave her some oral antibiotic and sent her home, but she was not getting better. The patient went to Dr. Misty Eng's office yesterday, and he found the patient was in distress from wheezing, COPD and cough. The patient was sent to the hospital for further IV treatment and pulmonary care. No chest pain. No headache. No dizziness. No nausea or vomiting. No diarrhea. No leg pain. No leg swelling. PAST MEDICAL HISTORY 1. COPD. 2. Hypertension. 3. Hyperlipidemia. 4. Anxiety. PAST SURGICAL HISTORY 1. Hysterectomy. 2. Appendectomy. 3. Cholecystectomy. 4. Cardiac catheterization. ALLERGIES: ALLERGIC TO TAPE AND LATEX. FAMILY HISTORY: Mother had hypertension. Sister had heart disease. Father had diabetes. SOCIAL HISTORY: The patient is and lives with her family. Drinks alcohol occasionally. Smoking more than 1 pack of cigarettes per day. MEDICATIONS: List attached. REVIEW OF SYSTEMS GENERAL: Denies fatigue and weakness. HEENT: No diplopia. No blurring of vision. CARDIOPULMONARY: Has chest pain, cough and wheezing. ALIMENTARY SYSTEM: No nausea or vomiting. No diarrhea. No hematemesis. GENITOURINARY: No dysuria. No hematuria. MUSCULOSKELETAL: No joint pain. CENTRAL NERVOUS SYSTEM: No focal weakness. PHYSICAL EXAMINATION GENERAL: This is a 62-year-old female who is alert and oriented times 3, in no gross distress. VITAL SIGNS: Temperature 96.9, pulse 95, respiratory rate 20, blood pressure 129/67. HEENT: Head atraumatic, normocephalic. Pupils are bilaterally equal and reactive to light. Extraocular muscles intact. NECK: Supple. No JVD. No carotid bruit. LUNGS: Mild respiratory distress. Air entry fair. A few rhonchi and wheezing bilaterally. HEART: S1 and S2. Regular rate and rhythm. No S3, no S4. No murmur. ABDOMEN: Soft, nontender. No guarding, no rigidity. EXTREMITIES: No pedal edema. Peripheral pulses +1. NITROGLYCERIN NEUTRALIZER: Grossly nonfocal. Chest x-ray shows chronic-appearing changes in the lungs with what appears to be scarring or atelectasis more prominent in the right mid lung. EKG: Normal sinus rhythm. Left atrial abnormality. Nonspecific ST-T changes. LABS: Cardiac enzymes 3 sets are negative. Chemistries: Normal, except triglycerides 195. CBC normal. Urine is normal. ASSESSMENT 1. Exacerbation of chronic obstructive pulmonary disease. Failed outpatient treatment. 2. Bronchitis with touch of pneumonia. Failed outpatient treatment. 3. Hypertension. 4. Hyperlipidemia. 5. Anxiety. PLAN: Pulmonary consult with Dr. Rex Eng. IV Solu-Medrol 40 q.8. Rocephin 1 g q.12 h. and Zithromax 500 IV daily. Add Protonix 40 mg daily. Continue all other home medicines. Neb treatments, DuoNeb q.4 h. Continue Symbicort. Lab BNP tomorrow morning. CT of the chest to rule out hidden etiology without contrast. Case was discussed with the family and the patient. Told condition and prognosis. Job#: [id number]
--- NOTE | 2017-12-16 13:49 | Diagnostic Imaging Report ---
EXAMINATION: CT scan of the chest without contrast. TECHNIQUE: Helical CT images of the chest were performed from the lung apices to the level of the adrenal glands. No intravenous contrast was administered Coronal and sagittal reformatted images were obtained. COMPARISON: None. CLINICAL HISTORY:COPD exacerbation DISCUSSION: ABSENCE OF INTRAVENOUS CONTRAST DECREASES SENSITIVITY FOR DETECTION OF FOCAL LESIONS AND VASCULAR PATHOLOGY. LINES/TUBES: None. LUNGS AND AIRWAYS: Airways are clear. Mild centrilobular emphysematous change. Scattered areas of linear atelectasis. Left lower lobe consolidation with air bronchograms. PLEURA: No pneumothorax or pleural effusions. HEART AND MEDIASTINUM: The thyroid gland is normal. Coronary artery calcifications. LYMPH NODES: There is no mediastinal, hilar or axillary lymphadenopathy. ABDOMEN: Limited contrast-enhanced views of the upper abdomen show no abnormality within the visualized liver, spleen, pancreas, or kidneys. The adrenal glands are normal. BONES AND SOFT TISSUES: No acute bony abnormalities. IMPRESSION: Left lower lobe consolidation/pneumonia Mild emphysema Signed by: Dr. Tapan Belcher M.D. on 12/16/2017 1:47 PM
[2017-12-16] MEDS: ALBUTEROL/IPRATROPIUM 3 ML NEB NEB SCH ×3 (15:23→23:40)
--- NOTE | 2017-12-16 16:12 | Consultation ---
DATE OF CONSULTATION: PULMONARY CONSULTATION REASON FOR CONSULTATION: COPD exacerbation and shortness of breath. HISTORY OF PRESENT ILLNESS: Ms. Newsome is a 62-year-old lady, who is known to me from . The patient unfortunately continues to smoke. She has not been feeling well for the past few days. The patient was evaluated by her primary care physician. She was admitted in the hospital for further management. At the time of my assessment, the patient is still having the cough and minimal sputum production. No significant fever. However, she feels very sweaty. REVIEW OF SYSTEMS: Headache is present. Denies blurring of the vision. She has discomfort present. A dry cough is present. Denies nausea, vomiting, abdominal pain, diarrhea, constipation. Denies urinary urgency or frequency. Denies polyuria, polyphagia or polydipsia. Denies any hematuria. No new skin rash. PAST MEDICAL HISTORY: Significant for tobacco use disorder, COPD, hypertension, hyperlipidemia, underlying anxiety. SURGICAL HISTORY: Includes cholecystectomy, appendectomy, hysterectomy. ALLERGIES: ADVERSE REACTION TO LATEX AND TAPE. SOCIAL HISTORY: The patient lives with her family. Smokes 1 pack of cigarettes on a daily basis. FAMILY HISTORY: Mother with hypertension. Sister with coronary artery disease. Father with diabetes mellitus. CURRENT MEDICATIONS: Reviewed. PHYSICAL EXAMINATION VITALS: Temperature 97.5, blood pressure 129/67 mmHg, saturating 97% on 2 L nasal cannula, pulse of 80. HEAD AND NECK: Normocephalic. Nontender. Pupils are reactive. Oral mucosa is moist. The neck is supple. CHEST: Symmetrical expansion. Left basilar crackles are present. Prolonged expiratory time and wheezing present. HEART: S1 and S2 audible, regular rhythm. ABDOMEN: Obese, nontender. Bowel sounds are present. EXTREMITIES: No edema. GRAIN ELEVATOR CLERK: Awake. Nonfocal. LABORATORY DATA: CT scan of the chest reviewed. Shows left lower lobe consolidation. Centrilobular emphysematous changes present. WBC 11.4; hemoglobin 14.5; hematocrit 39.8; platelet count 244,000. BUN 17, creatinine 0.71, potassium 3.7. Bilirubin 1, albumin 3.9, triglycerides 195, cholesterol 169, LDL 94, HDL 36. IMPRESSION 1. Left lower lobe pneumonia. 2. Chronic obstructive pulmonary disease exacerbation. 3. Tobacco use disorder. 4. Hypertension. 5. Hyperlipidemia. RECOMMENDATIONS: I agree with the current antibiotics. Solu-Medrol and bronchodilator. Out of bed to chair. Supplemental oxygen. Increase fluid intake. All questions answered. I thank you, Dr. Eng, for asking my opinion. Will follow. Job#: [id number]
[2017-12-16] MEDS: ACETAMINOPHEN/CODEINE 300MG - 30MG TAB PO PRN (20:05)
[2017-12-16] MEDS: ATORVASTATIN 10 MG TAB PO SCH (20:05)
[2017-12-17] VITALS (7 sets, daily range): BP systolic 114–130; BP diastolic 64–79
[2017-12-17] MEDS: CEFTRIAXONE SOD 1 GM VIAL IV SCH ×2 (01:57→14:24)
[2017-12-17] MEDS: ALBUTEROL/IPRATROPIUM 3 ML NEB NEB SCH ×6 (03:45→23:35)
[2017-12-17 05:28] LABS: ANION GAP 14.3 mmol/L (8-16); BLOOD UREA NITROGEN 14 mg/dL (7-26); BUN/CREATININE RATIO 19 (6-25); CALCIUM 9.3 mg/dL (8.4-10.2); CARBON DIOXIDE 21 mmol/L (22-29); CHLORIDE 107 mmol/L (98-107); CREATININE, SERUM 0.74 mg/dL (0.57-1.11); EST GLOMERULAR FILTRATION RATE > 60 ML/MIN (60-); GLUCOSE 207 mg/dL (74-118); POTASSIUM 4.3 mmol/L (3.5-5.1); SODIUM 138 mmol/L (136-145)
[2017-12-17] MEDS: METHYLPREDNISOLONE SOD SUCC 125 MG/2ML VIAL IV SCH ×2 (05:44→16:56)
[2017-12-17] MEDS: BUDESONIDE/FORMOTEROL 160/4.5MCG INHALER INH SCH ×2 (07:00→19:20)
[2017-12-17] MEDS: PANTOPRAZOLE SOD 40 MG TABEC PO SCH (07:46)
[2017-12-17] MEDS: NITROGLYCERIN 0.4 MG PATCH TOP SCH (09:00)
[2017-12-17] MEDS: AMLODIPINE BESYLATE 10 MG TAB PO SCH (09:18)
[2017-12-17] MEDS: ATENOLOL 50 MG TAB PO SCH (09:18)
[2017-12-17] MEDS: AZITHROMYCIN 500MG/NS 250 ML 250 ML IV SCH (13:16)
[2017-12-17] MEDS: ACETAMINOPHEN/CODEINE 300MG - 30MG TAB PO PRN (13:54)
[2017-12-17] MEDS: ATORVASTATIN 10 MG TAB PO SCH (21:00)
[2017-12-18] VITALS (8 sets, daily range): BP systolic 130–155; BP diastolic 71–90
[2017-12-18] MEDS: CEFTRIAXONE SOD 1 GM VIAL IV SCH ×2 (02:45→13:57)
[2017-12-18] MEDS: ALBUTEROL/IPRATROPIUM 3 ML NEB NEB SCH ×6 (03:45→23:50)
[2017-12-18] MEDS: BUDESONIDE/FORMOTEROL 160/4.5MCG INHALER INH SCH ×2 (06:53→19:28)
[2017-12-18] MEDS: METHYLPREDNISOLONE SOD SUCC 125 MG/2ML VIAL IV SCH ×2 (08:18→17:00)
[2017-12-18] MEDS: PANTOPRAZOLE SOD 40 MG TABEC PO SCH (08:18)
[2017-12-18] MEDS: ATENOLOL 50 MG TAB PO SCH (08:19)
[2017-12-18] MEDS: NITROGLYCERIN 0.4 MG PATCH TOP SCH (08:19)
[2017-12-18] MEDS: AMLODIPINE BESYLATE 10 MG TAB PO SCH (08:19)
[2017-12-18] MEDS: ACETAMINOPHEN 325 MG TAB PO PRN ×2 (08:24→20:41)
[2017-12-18] MEDS ORDERED: NAPROXEN 250 MG TAB PO PRN (10:15)
[2017-12-18] MEDS ORDERED: SODIUM CHLORIDE 0.9% 250ML 250 ML ONE (13:28)
[2017-12-18] MEDS: IBUPROFEN 400 MG TAB PO PRN (13:45)
[2017-12-18] MEDS: AZITHROMYCIN 500MG/NS 250 ML 250 ML IV SCH (13:57)
[2017-12-18] MEDS: ATORVASTATIN 10 MG TAB PO SCH (20:15)
[2017-12-19] VITALS: BP 154/92
[2017-12-19] MEDS: CEFTRIAXONE SOD 1 GM VIAL IV SCH (02:53)
[2017-12-19] MEDS: ALBUTEROL/IPRATROPIUM 3 ML NEB NEB SCH ×2 (03:01→07:00)
[2017-12-19 04:00] VITALS: BP 167/93
[2017-12-19] MEDS: BUDESONIDE/FORMOTEROL 160/4.5MCG INHALER INH SCH (07:00)
[2017-12-19 07:38] VITALS: BP 153/98
[2017-12-19 07:50] VITALS: BP 153/98
[2017-12-19] MEDS: IBUPROFEN 400 MG TAB PO PRN (07:50)
[2017-12-19] MEDS: METHYLPREDNISOLONE SOD SUCC 125 MG/2ML VIAL IV SCH (07:51)
[2017-12-19] MEDS: PANTOPRAZOLE SOD 40 MG TABEC PO SCH (07:51)
[2017-12-19] MEDS: AMLODIPINE BESYLATE 10 MG TAB PO SCH (07:52)
[2017-12-19] MEDS: NITROGLYCERIN 0.4 MG PATCH TOP SCH (07:53)
[2017-12-19] MEDS: ATENOLOL 50 MG TAB PO SCH (07:53)
[2017-12-19] MEDS ORDERED: zpack (10:38)
[2017-12-19] MEDS ORDERED: ceftin PO (10:38)
--- NOTE | 2017-12-19 10:38 | Discharge Summary ---
She is a 62-year-old female patient of mine. Presented with a complaint of shortness of breath, cough, wheezing. ADMITTING IMPRESSION/DIAGNOSES 1. Acute chronic obstructive pulmonary disease exacerbation. 2. Community-acquired pneumonia. 3. Hypertension. 4. Hyperlipidemia. 5. Anxiety. 6. Active smoker. HOSPITAL COURSE SUMMARY: Patient was admitted with the above diagnoses. Patient was treated with IV antibiotics and Solu-Medrol. Patient was given Rocephin and Zithromax and pulmonary consult was done. Patient had supplemental oxygenation done. Patient had refrained from the smoking while she was in the hospital and Protonix was given. The patient had a CT chest and chest x-ray was done. Patient had left lower lobe consolidation. Patient had improved significantly with the above treatment, and now, upon stabilization, patient will be discharged home on a tapering dose of prednisone 20 mg twice a day for 5 days, then once a day for 5 days, and then half table for 5 days; and Ceftin and Z-Oracio; and patient will be given her Symbicort to refill. OLAF SERNA MD Job#: [id number] [place]
[2017-12-19] MEDS ORDERED: VARENICLINE (10:39)
[2017-12-19] MEDS ORDERED: ACIPHEX20 MG PO (10:39)
[2017-12-19] MEDS ORDERED: PREDNISONE20 MG PO ×2 (10:40)
[2017-12-19] MEDS ORDERED: PREDNISONE10 MG PO (10:41)
[2017-12-19 11:14] VITALS: BP 148/95
== END 2017-12-19 11:08 | disposition home or self-care (01) | DRG 190 ==
LOC: MED/SURG2 12:46
PROVIDERS: ADMIT Internal Medicine; ATTEND Internal Medicine
DX: J44.0 Chronic obstructive pulmonary disease with (acute) lower respiratory infection (principal); J18.9 Pneumonia, unspecified organism; J44.1 Chronic obstructive pulmonary disease with (acute) exacerbation; J20.9 Acute bronchitis, unspecified; Z91.040 Latex allergy status; Z91.048 Other nonmedicinal substance allergy status; E78.5 Hyperlipidemia, unspecified; I10 Essential (primary) hypertension; F17.210 Nicotine dependence, cigarettes, uncomplicated; F41.9 Anxiety disorder, unspecified; Z83.3 Family history of diabetes mellitus; Z82.49 Family history of ischemic heart disease and other diseases of the circulatory system; R51 Headache
CPT/HCPCS: 36415; 36600; 71046; 71250; 80048; 80053; 80061; 81001; 82550; 82553; 82805; 83880; 84484; 85025; 85610; 85730; 94640; J0456; J0696; J2930; J7050

== ENCOUNTER 2018-04-12 19:34 | Inpatient (IN) | payer OTHER ==
[~2018-04-12] VITALS: Ht 154.4 cm; Wt 71.7 kg
[~2018-04-12 19:34] MED LIST changes: +VARENICLINE; +ceftin PO; +zpack
--- OUTSIDE RECORDS SUMMARY | 2018-04-12 19:37 | XMS REPORT | Clinical Summary ---
Author Author [facility] Organization [facility] Address Unknown Phone Unavailable Care Team Providers Care Sieve Grader Tender Name Role Phone Isaiah Eng MD PCP Allergies Comments Active Allergy Reactions Severity Noted Date Latex Rash Low 12/09/2017 Medications End Date Status Medication Sig Dispensed Refills Start Date 01/09/2018 benzonatate (TESSALON) Take 1 21 capsule 0 100 MG capsule capsule (100 8 mg total) by mouth every 8 (eight) hours for 30 days. 12/14/2017 azithromycin (ZITHROMAX Take 2 6 tablet 0 Z-TIFFANY) 250 MG tablet tablets the 8 first day, then 1 tablet daily for 4 days. 12/13/2017 predniSONE (DELTASONE) 10 Take 4 12 tablet 0 mg tablet tablets (40 8 mg total) by mouth daily for 3 days. Active Problems Not on file Encounters Care Team Description Date Type Specialty Jayme Espinal MD Bronchitis (Primary Dx) 12/09/2017 Emergency Emergency Medicine - 12/10/2017 after 04/11/2017 Social History Date Tobacco Use Types Packs/Day Years Used Current Every Day Smoker 1 Sex Assigned at Date Recorded Not on file Industry Job Start Date Occupation Not on file Not on file Not on file Travel End Travel History Travel Start No recent travel history available. Last Filed Vital Signs Time Taken Vital Sign Reading 12/09/2017 11:31 PM CDT Blood Pressure 184/102 12/09/2017 11:31 PM CDT Pulse 92 12/09/2017 11:31 PM CDT Temperature 36.5 C (97.7 F) 12/09/2017 11:31 PM CDT Respiratory Rate 20 12/09/2017 11:31 PM CDT Oxygen Saturation 93% - Inhaled Oxygen - Concentration 12/09/2017 11:29 PM CDT Weight 67.1 kg (148 lb) 12/09/2017 11:29 PM CDT Height 172.7 cm (5' 8") 12/09/2017 11:29 PM CDT Body Mass Index 22.5 Plan of Treatment Health Maintenance Due Date Last Done Comments CERVICAL CANCER SCREENING 1977 BREAST CANCER SCREENING 2006 COLON CANCER SCREENING 2006 SHINGLES VACCINES (1 of 2006 2) INFLUENZA VACCINE 10/25/2017 Procedures Comments Procedure Name Priority Date/Time Associated Diagnosis XR CHEST 2 VW STAT 12/09/2017 11:54 PM CDT ESTIMATED GFR STAT 12/09/2017 11:35 PM CDT LIPASE LEVEL STAT 12/09/2017 11:35 PM CDT CREATINE KINASE, TOTAL STAT 12/09/2017 (CPK) 11:35 PM CDT B NATRIURETIC PEPTIDE STAT 12/09/2017 11:35 PM CDT TROPONIN STAT 12/09/2017 11:35 PM CDT COMPREHENSIVE METABOLIC STAT 12/09/2017 PANEL 11:35 PM CDT PARTIAL THROMBOPLASTIN STAT 12/09/2017 TIME (PTT) 11:35 PM CDT PROTHROMBIN TIME WITH INR STAT 12/09/2017 11:35 PM CDT HC COMPLETE BLD COUNT STAT 12/09/2017 W/AUTO DIFF 11:35 PM CDT ECG 12-LEAD Routine 12/09/2017 11:28 PM CDT ECG ED PRELIMINARY Routine 12/09/2017 INTERPRETATION 11:22 PM CDT after 04/11/2017 Results * XR Chest 2 Vw (12/09/2017 11:54 PM CDT) Narrative Performed At Examination:XR CHEST 2 VW HM RADIANT Clinical History: chest pain Comparison: None. Technique: PA and lateral views of the chest were obtained. Findings: The lungs are free of infiltrate. The heart size is normal. No pleural effusion is seen. Impression: No active cardiopulmonary disease identified. [facility]-[id number] Procedure Note Hm Interface, Radiology Results Incoming - 12/09/2017 11:59 PM CDT Examination: XR CHEST 2 VW Clinical History: chest pain Comparison: None. Technique: PA and lateral views of the chest were obtained. Findings: The lungs are free of infiltrate. The heart size is normal. No pleural effusion is seen. Impression: No active cardiopulmonary disease identified. [facility]-[id number] Performing Organization Address City/[facility]/Zipcode Phone Number RENA [address] [place] [address] * Estimated GFR (12/09/2017 11:35 PM CDT) Estimated GFR 79 mL/min/1.73 m2 [facility] DEPARTMENT OF Comment: PATHOLOGY AND CatergoryUnitsInte GENOMIC MEDICINE rpretation G1 >=90 Normal or high G2 60-89Mildly decreased [id number] Mildly to moderately decreased [id number] Moderately to severely decreased G4 15-29Severely decreased G5 <15Kidney failure The eGFR was calculated using the Chronic Kidney Disease Epidemiology Collaboration (CKD-EPI) equation. Interpretation is based on recommendations of the National Kidney Foundation-Kidney Disease Outcomes Quality Initiative (NKF-KDOQI) published in 2014. Specimen Plasma specimen Performing Organization Address [facility] Phone Number [address] [place] [address] PATHOLOGY AND [place] MEDICINE * Troponin (12/09/2017 11:35 PM CDT) Troponin <0.300 0.000 - 0.300 ng/mL [facility] DEPARTMENT OF Comment: PATHOLOGY AND 0.30 - 1.49 GENOMIC MEDICINE ng/mlMay indicate increased risk of acute coronary syndrome. >=1.5 ng/ml Consistent with acute myocardial infarction. The diagnostic value of a single normal or non-diagnostic result is questionable.Serial samples at 2-6 hour intervals are required to rule out acute myocardial injury. Specimen Plasma specimen Performing Organization Address [facility] Phone Number [address] [place] [address] PATHOLOGY AND GENOMIC MEDICINE * Partial thromboplastin time, activated (12/09/2017 11:35 PM CDT) PTT 31.4 23.0 - 36.0 sec [facility] DEPARTMENT OF Comment: PATHOLOGY AND PTT therapeutic range for GENOMIC MEDICINE unfractionated heparin is 61.0-112.0 seconds which corresponds to Anti-Xa 0.3-0.7 U/ml. Specimen Blood Performing Organization Address [facility] Phone Number [address] [place] [address] PATHOLOGY AND [place] MEDICINE * Prothrombin time with INR (12/09/2017 11:35 PM CDT) Prothrombin time 12.8 12.0 - 15.0 sec [facility] DEPARTMENT OF PATHOLOGY AND [place] MEDICINE INR 1.0 [facility] DEPARTMENT OF Comment: PATHOLOGY AND The International Normalized [facility] Ratio (INR) is a therapeutic monitoring tool for patients who are stable on oral anticoagulant therapy. An INR of 2.0-3.0 is suggested for deep vein thrombosis/pulmonary embolism. Specimen Blood Performing Organization Address [facility] Phone Number [address] [place] [phone] PATHOLOGY AND [place] * CBC with platelet and differential (12/09/2017 11:35 PM CDT) WBC 7.25 4.50 - 11.00 k/uL [facility] DEPARTMENT OF PATHOLOGY AND GENOMIC MEDICINE RBC 4.58 4.20 - 5.50 m/uL [facility] DEPARTMENT OF PATHOLOGY AND GENOMIC MEDICINE HGB 14.9 12.0 - 16.0 g/dL [facility] DEPARTMENT OF PATHOLOGY AND GENOMIC MEDICINE HCT 42.8 37.0 - 47.0 % [facility] DEPARTMENT OF PATHOLOGY AND GENOMIC MEDICINE MCV 93.4 82.0 - 100.0 fL [facility] DEPARTMENT OF PATHOLOGY AND GENOMIC MEDICINE MCH 32.5 27.0 - 34.0 pg [facility] DEPARTMENT OF PATHOLOGY AND GENOMIC MEDICINE MCHC 34.8 31.0 - 37.0 g/dL [facility] DEPARTMENT OF PATHOLOGY AND GENOMIC MEDICINE RDW - SD 40.2 37.0 - 55.0 fL [facility] DEPARTMENT OF PATHOLOGY AND GENOMIC MEDICINE MPV 9.6 8.8 - 13.2 fL [facility] DEPARTMENT OF PATHOLOGY AND GENOMIC MEDICINE Platelet count 224 150 - 400 k/uL [facility] DEPARTMENT OF PATHOLOGY AND GENOMIC MEDICINE Nucleated RBC 0.00 /100 WBC [facility] DEPARTMENT OF PATHOLOGY AND GENOMIC MEDICINE Neutrophils 48.4 39.0 - 69.0 % [facility] DEPARTMENT OF PATHOLOGY AND GENOMIC MEDICINE Lymphocytes 37.7 25.0 - 45.0 % [facility] DEPARTMENT OF PATHOLOGY AND GENOMIC MEDICINE Monocytes 9.9 0.0 - 10.0 % [facility] DEPARTMENT OF PATHOLOGY AND GENOMIC MEDICINE Eosinophils 2.9 0.0 - 5.0 % [facility] DEPARTMENT OF PATHOLOGY AND GENOMIC MEDICINE Basophils 0.7 0.0 - 1.0 % [facility] DEPARTMENT OF PATHOLOGY AND GENOMIC MEDICINE Specimen Blood Performing Organization Address [facility] Phone Number [address] [place] [address] PATHOLOGY AND [facility] * B natriuretic peptide (12/09/2017 11:35 PM CDT) BNP 8 0 - 100 pg/mL [facility] DEPARTMENT OF PATHOLOGY AND GENOMIC MEDICINE Specimen Blood Performing Organization Address [facility] Number [address] [place] [address] PATHOLOGY [facility] * Lipase level (12/09/2017 11:35 PM CDT) Lipase 29 13 - 60 U/L [facility] DEPARTMENT OF PATHOLOGY AND GENOMIC MEDICINE Specimen Plasma specimen Performing Organization Address [facility] Number [address] [place] [address] PATHOLOGY [facility] * Creatine kinase, total (CPK) (12/09/2017 11:35 PM CDT) Creatine kinase 87 26 - 192 U/L [facility] DEPARTMENT OF PATHOLOGY AND GENOMIC MEDICINE Specimen Plasma specimen Performing Organization Address [facility] Phone Number [address] [place] [address] PATHOLOGY AND [facility] * Comprehensive metabolic panel (12/09/2017 11:35 PM CDT) Sodium 141 135 - 148 mEq/L [facility] DEPARTMENT OF PATHOLOGY AND GENOMIC MEDICINE Potassium 3.8 3.5 - 5.0 mEq/L [facility] DEPARTMENT OF PATHOLOGY AND GENOMIC MEDICINE Chloride 106 98 - 112 mEq/L [facility] DEPARTMENT OF PATHOLOGY AND GENOMIC MEDICINE CO2 22 (L) 24 - 31 mEq/L [facility] DEPARTMENT OF PATHOLOGY AND GENOMIC MEDICINE Anion gap 13@ANIO 7 - 15 mEq/L [facility] DEPARTMENT OF PATHOLOGY AND GENOMIC MEDICINE BUN 13 8 - 23 mg/dL [facility] OF PATHOLOGY AND GENOMIC MEDICINE Creatinine 0.80 0.50 - 0.90 mg/dL [facility] OF PATHOLOGY AND GENOMIC MEDICINE Glucose 124 (H) 65 - 99 mg/dL [facility] OF PATHOLOGY AND GENOMIC MEDICINE Calcium 9.0 8.8 - 10.2 mg/dL [facility] OF PATHOLOGY AND GENOMIC MEDICINE Protein 7.1 6.3 - 8.3 g/dL [facility] DEPARTMENT OF Comment: PATHOLOGY AND [place] GENOMIC MEDICINE 4.6-7.0 g/dL 1 week 4.4-7.6 g/dL 7 months-1year 5.1-7.3 g/dL 1-2 years5.6-7 .5 g/dL >3 years6.0-8 .0 g/dL 18-150 6.3-8.3 g/dL Albumin 4.2 3.5 - 5.0 g/dL [facility] OF PATHOLOGY AND GENOMIC MEDICINE A/G ratio 1.4 0.7 - 3.8 [facility] OF PATHOLOGY AND GENOMIC MEDICINE Alkaline phosphatase 129 (H) 35 - 104 U/L [facility] OF PATHOLOGY AND GENOMIC MEDICINE AST 19 10 - 35 U/L [facility] DEPARTMENT OF PATHOLOGY AND GENOMIC MEDICINE ALT 18 5 - 50 U/L [facility] OF PATHOLOGY AND GENOMIC MEDICINE Total bilirubin 0.5 0.0 - 1.2 mg/dL [facility] OF PATHOLOGY AND GENOMIC MEDICINE Specimen Plasma specimen Performing Organization Address City/State/Zipcode Phone Number [facility] [address] [place] [address] PATHOLOGY AND GENOMIC MEDICINE * ECG 12 lead (12/09/2017 11:28 PM CDT) Ventricular rate 88 [facility] Atrial rate 88 [facility] FL interval 150 [facility] QRSD interval 90 [facility] QT interval 378 [facility] QTC interval 457 [facility] P axis 1 73 [facility] QRS axis 1 -45 [facility] T wave axis 64 [facility] EKG impression Normal sinus rhythm-Possible [facility] MUSE Left atrial enlargement-Left anterior fascicular block-Septal infarct , age undetermined-Abnormal ECG-In automated comparison with ECG of 02-JUN-2014 12:59,-Septal infarct is now present-T wave inversion no longer evident in Inferior leads- Performing Organization Address City/State/Zipcode Phone Number [facility] MUSE [address] [place] [address] * ECG ED Preliminary Interpretation - NOT AN ORDER (12/09/2017 11:22 PM CDT) Narrative Performed At Jayme Espinal MD 12/12/20172:22 AM ECG ED Preliminary Interpretation - Not an Order Performed by: JAYME ESPINAL Authorized by: JAYME ESPINAL ECG reviewed by ED Physician in the absence of a technology recruiter: yes Interpretation: Interpretation: non-specific Rate: ECG rate:88 ECG rate assessment: normal Rhythm: Rhythm: sinus rhythm QRS: QRS axis:Normal Conduction: Conduction: normal ST segments: ST segments:Non-specific T waves: T waves: non-specific after 04/11/2017 Insurance Payer Benefit Subscriber ID Type Phone Address Plan / Group CIGNA CIGNA OPEN xxxxxxxxxxx HMO ACCESS/NET WORK Advance Directives Patient has advance care planning documents on file. For more information, nanette french contact: Esteban Abrams [address] [place] [address]
[2018-04-12] MEDS ORDERED: IPRATROPIUM BROMIDE 0.02% 2.5 ML NEB NEB ONE (20:15)
[2018-04-12] MEDS ORDERED: SODIUM CHLORIDE 0.9% 500ML 500 ML IV ONE (20:15)
[2018-04-12 20:19] LABS: CLARITY,URINE CLEAR (CLEAR); COLOR,URINE YELLOW (YELLOW); KETONES,URINE NEGATIVE (NEGATIVE); LEUKOCYTE ESTERASE ,URINE NEGATIVE (NEGATIVE); NITRITE,URINE NEGATIVE (NEGATIVE); PROTEIN,URINE DIPSTICK NEGATIVE (NEGATIVE)
[2018-04-12 20:20] LABS: BILIRUBIN,URINE NEGATIVE (NEGATIVE); URINE UROBILINOGEN 0.2 mg/dL (0.2 - 1)
[2018-04-12] MEDS ORDERED: mucinex PO (20:21)
--- NOTE | 2018-04-12 20:29 | Diagnostic Imaging Report ---
Examination: Single AP view of the chest. COMPARISON: CT chest 12/16/2017 INDICATION: Chest pain, cough, shortness of breath IMPRESSION: 1. Lines and Tubes: None 2. Lungs are well-inflated. Stable linear scarring in the right lower lobe. No consolidation or effusion. 3. Mild prominence of the cardiac silhouette, which may relate to AP projection. Mild central venous congestion. 4. No acute bony abnormalities. Signed by: Dr. Casa Murray M.D. on 04/12/2018 8:25 PM
[2018-04-12] MEDS ORDERED: NITROGLYCERIN 2% OINT 1 GM PKT TOP ONE (20:30)
[2018-04-12] MEDS ORDERED: LEVALBUTEROL HCL SOLN NEBU 1.25 MG/3 ML NEB INH ONE (20:30)
[2018-04-12] MEDS ORDERED: METHYLPREDNISOLONE SOD SUCC 125 MG/2ML VIAL IV ONE (20:30)
[2018-04-12 20:31] LABS: BASOPHILS # (AUTO) 0.1 (0.0-0.1); BASOPHILS % 0.5 % (0.0-1.0); EOSINOPHILS # (AUTO) 0.3 (0.0-0.4); EOSINOPHILS % 2.9 % (0.0-6.0); HEMATOCRIT 42.3 % (34.2-44.1); HEMOGLOBIN 14.4 g/dL (12.0-16.0); LYMPHOCYTES # (AUTO) 3.5 (1.0-3.2); LYMPHOCYTES % 32.8 % (18.0-39.1); MEAN CORPUSCULAR HEMOGLOBIN 32.3 pg (28-32); MEAN CORPUSCULAR VOLUME 94.8 fL (81-99); MONOCYTES # (AUTO) 1.2 (0.2-0.8); NEUTROPHILS # (AUTO) 5.6 (2.1-6.9); NEUTROPHILS % 52.5 % (38.7-80.0); PLATELET COUNT 219 x10e3/uL (140-360); RED BLOOD COUNT 4.46 x10e6/uL (3.6-5.1); RED CELL DISTRIBUTION WIDTH 11.7 % (11.7-14.4)
[2018-04-12] MEDS ORDERED: HYDROCODONE/CHLORPHENIRAMINE 5 ML LIQCR ONE (20:35)
[2018-04-12 20:36] LABS: BACTERIA,URINE MODERATE /HPF; EPITHELIAL CELLS,URINE MODERATE /LPF; TRANSITIONAL EPI CELLS,URINE FEW
[2018-04-12 20:49] LABS: ALANINE AMINOTRANSFERASE 14 IU/L (0-55); ALBUMIN 3.9 g/dL (3.5-5.0); ALBUMIN/GLOBULIN RATIO 1.3 (0.8-2.0); ALKALINE PHOSPHATASE 119 IU/L (40-150); ANION GAP 10.5 mmol/L (8-16); BLOOD UREA NITROGEN 14 mg/dL (7-26); BUN/CREATININE RATIO 18 (6-25); CALCIUM 9.4 mg/dL (8.4-10.2); CARBON DIOXIDE 23 mmol/L (22-29); CHLORIDE 104 mmol/L (98-107); CREATINE KINASE 125 IU/L (29-168); CREATININE, SERUM 0.76 mg/dL (0.57-1.11); EST GLOMERULAR FILTRATION RATE > 60 ML/MIN (60-); GLUCOSE 134 mg/dL (74-118); MAGNESIUM 2.3 MG/DL (1.3-2.1); POTASSIUM 3.5 mmol/L (3.5-5.1); SODIUM 134 mmol/L (136-145)
[2018-04-12] MEDS: HYDROCODONE/CHLORPHENIRAMINE 5 ML LIQCR PO PRN (20:49)
[2018-04-12 21:09] LABS: B-TYPE NATRIURETIC PEPTIDE2 18.1 pg/mL (0-100)
[2018-04-12 21:20] LABS: INR 0.89; PROTHROMBIN TIME 12.9 seconds (11.9-14.5)
[2018-04-12 21:21] LABS: PARTIAL THROMBOPLASTIN TIME 29.7 seconds (23.8-35.5)
[2018-04-12] MEDS ORDERED: ONDANSETRON HCL INJ 2MG/ML 2ML 2 MG/ML VIAL IV ONE (22:15)
[2018-04-12] MEDS ORDERED: PANTOPRAZOLE SOD 40 MG TABEC PO SCH (22:15)
--- OUTSIDE RECORDS SUMMARY | 2018-04-12 22:22 | XMS REPORT | Clinical Summary ---
Author Author [facility] Organization [facility] Address Unknown Phone Unavailable Care Team Providers Care Microbiology Teacher Name Role Phone Isaiah Eng MD PCP [...] seen. Impression: No active cardiopulmonary disease identified. [facility]-[id number] Procedure Note Hm Interface, Radiology Results Incoming - 12/09/2017 11:59 PM CDT Examination: XR CHEST 2 VW Clinical History: chest pain Comparison: None. Technique: PA and lateral views of the chest were obtained. Findings: The lungs are free of infiltrate. The heart size is normal. No pleural effusion is seen. Impression: No active cardiopulmonary disease identified. [facility]-[id number] Performing Organization Address City/[facility]/Zipcode Phone Number RE[facility] [address] [place] [address] * Estimated GFR (12/09/2017 11:35 PM CDT) Estimated GFR 79 mL/min/1.73 m2 [facility] DEPARTMENT OF Comment: PATHOLOGY AND CatergoryUnitsInte GENOMIC MEDICINE rpretation G1 >=90 Normal or high G2 60-89Mildly decreased P1c08-50 Mildly to moderately decreased [id number] Moderately to severely decreased G4 15-29Severely decreased G5 <15Kidney failure The eGFR was calculated using the Chronic Kidney Disease Epidemiology Collaboration (CKD-EPI) equation. Interpretation is based on recommendations of the National Kidney Foundation-Kidney Disease Outcomes Quality Initiative (NKF-KDOQI) published in 2014. Specimen Plasma specimen Performing Organization Address [facility] Phone Number [address] [place] [address] PATHOLOGY AND [facility] MEDICINE * Troponin (12/09/2017 11:35 PM CDT) Troponin <0.300 0.000 - 0.300 ng/mL [facility] DEPARTMENT OF Comment: PATHOLOGY AND 0.30 - 1.49 GENOMIC MEDICINE ng/mlMay indicate increased risk of acute coronary syndrome. >=1.5 ng/ml Consistent with acute myocardial infarction. The diagnostic value of a single normal or non-diagnostic result is questionable.Serial samples at 2-6 hour intervals are required to rule out acute myocardial injury. Specimen Plasma specimen Performing Organization Address [facility] Phone Number [address] [place] [address] PATHOLOGY AND GENOMIC MEDICINE * Partial thromboplastin time, activated (12/09/2017 11:35 PM CDT) PTT 31.4 23.0 - 36.0 sec [facility] DEPARTMENT OF Comment: PATHOLOGY AND PTT therapeutic range for GENOMIC MEDICINE unfractionated heparin is 61.0-112.0 seconds which corresponds to Anti-Xa 0.3-0.7 U/ml. Specimen Blood Performing Organization Address [facility] Phone Number [address] [place] [address] PATHOLOGY AND [facility] MEDICINE * Prothrombin time with INR (12/09/2017 11:35 PM CDT) Prothrombin time 12.8 12.0 - 15.0 sec [facility] DEPARTMENT OF PATHOLOGY AND [facility] MEDICINE INR 1.0 [facility] DEPARTMENT OF Comment: PATHOLOGY AND The International Normalized [facility] Ratio (INR) is a therapeutic monitoring tool for patients who are stable on oral anticoagulant therapy. An INR of 2.0-3.0 is suggested for deep vein thrombosis/pulmonary embolism. Specimen Blood Performing Organization Address [facility] Phone Number [address] [place] [phone] PATHOLOGY AND [employer] [facility] * CBC with platelet and differential (12/09/2017 11:35 PM CDT) WBC 7.25 4.50 - 11.00 k/uL [facility] DEPARTMENT OF PATHOLOGY AND GENOMIC MEDICINE RBC 4.58 4.20 - 5.50 m/uL [facility] DEPARTMENT OF PATHOLOGY AND GENOMIC MEDICINE HGB 14.9 12.0 - 16.0 g/dL [facility] DEPARTMENT OF PATHOLOGY AND GENOMIC MEDICINE HCT 42.8 37.0 - 47.0 % [facility] DEPARTMENT OF PATHOLOGY AND GENOMIC MEDICINE MCV 93.4 82.0 - 100.0 fL [facility] DEPARTMENT OF PATHOLOGY AND GENOMIC MEDICINE MCH 32.5 27.0 - 34.0 pg [facility] DEPARTMENT OF PATHOLOGY AND GENOMIC MEDICINE MCHC 34.8 31.0 - 37.0 g/dL [facility] DEPARTMENT OF PATHOLOGY AND GENOMIC MEDICINE RDW - SD 40.2 37.0 - 55.0 fL [facility] DEPARTMENT OF PATHOLOGY AND GENOMIC MEDICINE MPV 9.6 8.8 - 13.2 fL [facility] DEPARTMENT OF PATHOLOGY AND GENOMIC MEDICINE Platelet count 224 150 - 400 k/uL [facility] DEPARTMENT OF PATHOLOGY AND GENOMIC MEDICINE Nucleated RBC 0.00 /100 WBC [facility] DEPARTMENT OF PATHOLOGY AND GENOMIC MEDICINE Neutrophils 48.4 39.0 - 69.0 % [facility] DEPARTMENT OF PATHOLOGY AND GENOMIC MEDICINE Lymphocytes 37.7 25.0 - 45.0 % [facility] DEPARTMENT OF PATHOLOGY AND GENOMIC MEDICINE Monocytes 9.9 0.0 - 10.0 % [facility] DEPARTMENT OF PATHOLOGY AND GENOMIC MEDICINE Eosinophils 2.9 0.0 - 5.0 % [facility] DEPARTMENT OF PATHOLOGY AND GENOMIC MEDICINE Basophils 0.7 0.0 - 1.0 % [facility] DEPARTMENT OF PATHOLOGY AND GENOMIC MEDICINE Specimen Blood Performing Organization Address [facility] [place] Phone Number [address] [place] [address] PATHOLOGY AND [facility] * B natriuretic peptide (12/09/2017 11:35 PM CDT) BNP 8 0 - 100 pg/mL [facility] DEPARTMENT OF PATHOLOGY AND GENOMIC MEDICINE Specimen Blood Performing Organization Address [facility] Number [address] [place] [address] PATHOLOGY [facility] * Lipase level (12/09/2017 11:35 PM CDT) Lipase 29 13 - 60 U/L [facility] DEPARTMENT OF PATHOLOGY AND GENOMIC MEDICINE Specimen Plasma specimen Performing Organization Address [facility] Number [address] [place] [address] PATHOLOGY [facility] * Creatine kinase, total (CPK) (12/09/2017 11:35 PM CDT) Creatine kinase 87 26 - 192 U/L [facility] DEPARTMENT OF PATHOLOGY AND GENOMIC MEDICINE Specimen Plasma specimen Performing Organization Address [facility] [place] Phone Number [address] [place] [address] PATHOLOGY AND [facility] * Comprehensive metabolic panel (12/09/2017 11:35 PM CDT) Sodium 141 135 - 148 mEq/L [facility] DEPARTMENT OF PATHOLOGY AND GENOMIC MEDICINE Potassium 3.8 3.5 - 5.0 mEq/L [facility] DEPARTMENT OF PATHOLOGY AND GENOMIC MEDICINE Chloride 106 98 - 112 mEq/L [facility] DEPARTMENT OF PATHOLOGY AND GENOMIC MEDICINE CO2 22 (L) 24 - 31 mEq/L [facility] DEPARTMENT OF PATHOLOGY AND GENOMIC MEDICINE Anion gap 13@ANIO 7 - 15 mEq/L [facility] DEPARTMENT OF PATHOLOGY AND GENOMIC MEDICINE BUN 13 8 - 23 mg/dL [facility] OF PATHOLOGY AND GENOMIC MEDICINE Creatinine 0.80 0.50 - 0.90 mg/dL [facility] OF PATHOLOGY AND GENOMIC MEDICINE Glucose 124 (H) 65 - 99 mg/dL [facility] OF PATHOLOGY AND GENOMIC MEDICINE Calcium 9.0 8.8 - 10.2 mg/dL [facility] OF PATHOLOGY AND GENOMIC MEDICINE Protein 7.1 6.3 - 8.3 g/dL [facility] DEPARTMENT OF Comment: PATHOLOGY AND [place] GENOMIC MEDICINE 4.6-7.0 g/dL 1 week 4.4-7.6 g/dL 7 months-1year 5.1-7.3 g/dL 1-2 years5.6-7 .5 g/dL >3 years6.0-8 .0 g/dL 18-150 6.3-8.3 g/dL Albumin 4.2 3.5 - 5.0 g/dL [facility] OF PATHOLOGY AND GENOMIC MEDICINE A/G ratio 1.4 0.7 - 3.8 [facility] OF PATHOLOGY AND GENOMIC MEDICINE Alkaline phosphatase 129 (H) 35 - 104 U/L [facility] OF PATHOLOGY AND GENOMIC MEDICINE AST 19 10 - 35 U/L [facility] DEPARTMENT OF PATHOLOGY AND GENOMIC MEDICINE ALT 18 5 - 50 U/L [facility] OF PATHOLOGY AND GENOMIC MEDICINE Total bilirubin 0.5 0.0 - 1.2 mg/dL [facility] OF PATHOLOGY AND GENOMIC MEDICINE Specimen Plasma specimen Performing Organization Address City/State/Zipcode Phone Number [facility] [place] [address] [place] [address] PATHOLOGY AND GENOMIC MEDICINE * ECG 12 lead (12/09/2017 11:28 PM CDT) Ventricular rate 88 [facility] Atrial rate 88 [facility] MO interval 150 [facility] QRSD interval 90 [facility] QT interval 378 [facility] QTC interval 457 [facility] P axis 1 73 [facility] QRS axis 1 -45 [facility] T wave axis 64 [facility] EKG impression Normal sinus rhythm-Possible [facility] MUSE Left atrial enlargement-Left anterior fascicular block-Septal infarct , age undetermined-Abnormal ECG-In automated comparison with ECG of 02-JUN-2014 12:59,-Septal infarct is now present-T wave inversion no longer evident in Inferior leads- Performing Organization Address City/State/Zipcode Phone Number [facility] MUSE [address] [place] [address] * ECG ED Preliminary Interpretation - NOT AN ORDER (12/09/2017 11:22 PM CDT) Narrative Performed At Jayme Espinal MD 12/12/20172:22 AM ECG ED Preliminary Interpretation - Not an Order Performed by: JAYME ESPINAL Authorized by: JAYME ESPINAL ECG reviewed by ED Physician in the absence of a mold design engineer: yes Interpretation: Interpretation: non-specific Rate: ECG rate:88 [...] more information, nanette french contact: Esteban Abrams [address] [place] [address]
[2018-04-12] MEDS: AZITHROMYCIN 500MG/NS 250 ML 250 ML IV SCH (22:29)
[2018-04-12 22:30] VITALS: BP 146/78
--- NOTE | 2018-04-12 22:30 | NUR ---
RECEIVED PT TO UNIT ROOM 104 VIA STRETCHER.PT AAO X 3.NO S/S OF ACUTE DISTRESS NOTED.RESPIRATIONS EVEN/NON LABORED.V/S TAKEN,WNL.ORIENTED PT TO ROOM,BATHROOM,CALL LIGHT/TV REMOTE AT THIS TIME.INSTRUCTED PT TO CALL FOR ASSISTANCE NEEDED BY USING CALL LIGHT.YELLOW SOCKS PUT ON.BED POSITIONED IN THE LOWEST/LOCKED. AT BEDSIDE.CALL LIGHT WITHIN EASY REACH.
[2018-04-12 22:53] VITALS: BP 146/78
[2018-04-12] MEDS: MORPHINE SULFATE INJ 4 MG/ML INJ 1ML IV PRN (23:28)
[2018-04-12] MEDS: NITROGLYCERIN 2% OINT 1 GM PKT TOP SCH (23:32)
[2018-04-13] MEDS: ALBUTEROL SULF 0.083% NEB SOLN 3 ML NEB NEB SCH ×4 (02:15→15:57)
[2018-04-13] MEDS: IPRATROPIUM BROMIDE 0.02% 2.5 ML NEB NEB SCH ×4 (02:15→15:56)
--- NOTE | 2018-04-13 04:15 | NUR ---
BLOOD DRAWN FOR LAB,PT TOLERATED WELL.NO S/S OF DISTRESS NOTED.RESPIRATIONS EVEN/NON LABORED.BED IN LOWEST/LOCKED POSITION.BED ALARM ON.CALL LIGHT WITHIN EASY REACH.
[2018-04-13 04:28] LABS: BASOPHILS % 0.2 % (0.0-1.0); EOSINOPHILS % 0.1 % (0.0-6.0); HEMATOCRIT 43.4 % (34.2-44.1); HEMOGLOBIN 14.6 g/dL (12.0-16.0); LYMPHOCYTES % 11.5 % (18.0-39.1); MEAN CORPUSCULAR HEMOGLOBIN 32.8 pg (28-32); MEAN CORPUSCULAR HGB CONC 33.6 g/dL (31-35); MEAN CORPUSCULAR VOLUME 97.5 fL (81-99); MONOCYTES # (AUTO) 0.1 (0.2-0.8); MONOCYTES % 1.3 % (4.4-11.3); NEUTROPHILS # (AUTO) 7.3 (2.1-6.9); NEUTROPHILS % 86.4 % (38.7-80.0); PLATELET COUNT 214 x10e3/uL (140-360); RED BLOOD COUNT 4.45 x10e6/uL (3.6-5.1); RED CELL DISTRIBUTION WIDTH 11.3 % (11.7-14.4)
[2018-04-13 04:48] LABS: ALANINE AMINOTRANSFERASE 14 IU/L (0-55); ALBUMIN 3.5 g/dL (3.5-5.0); ALBUMIN/GLOBULIN RATIO 1.1 (0.8-2.0); ALKALINE PHOSPHATASE 108 IU/L (40-150); ANION GAP 11.5 mmol/L (8-16); BLOOD UREA NITROGEN 13 mg/dL (7-26); BUN/CREATININE RATIO 18 (6-25); CALCIUM 9.3 mg/dL (8.4-10.2); CARBON DIOXIDE 24 mmol/L (22-29); CHLORIDE 106 mmol/L (98-107); CHOLESTEROL 169 MD/DL (0-199); CREATININE, SERUM 0.74 mg/dL (0.57-1.11); EST GLOMERULAR FILTRATION RATE > 60 ML/MIN (60-); GLUCOSE 179 mg/dL (74-118); HDL CHOLESTEROL 42 MG/DL (40-60); LDL CHOLESTEROL 117 MG/DL (60-130); SODIUM 137 mmol/L (136-145); TRIGLYCERIDES 49 MG/DL (0-149)
[2018-04-13 05:00] VITALS: BP 127/64
[2018-04-13] MEDS: NITROGLYCERIN 2% OINT 1 GM PKT TOP SCH ×3 (05:00→18:22)
[2018-04-13] MEDS: METHYLPREDNISOLONE SOD SUCC 125 MG/2ML VIAL IV SCH ×3 (05:02→22:46)
[2018-04-13 05:04] LABS: POTASSIUM 4.5 mmol/L (3.5-5.1)
[2018-04-13 05:05] LABS: CREATINE KINASE MB 0.9 ng/mL (0-5.0)
--- NOTE | 2018-04-13 07:09 | NUR ---
REPORT GIVEN TO ONCOMING NURSE,WALKING ROUNDS DONE.PT RESTING IN BED WITH NO S/S OF DISTRESS.
[2018-04-13 08:04] VITALS: BP 125/59
[2018-04-13] MEDS: FAMOTIDINE 20 MG/2 ML VIAL IV SCH ×2 (08:44→21:44)
[2018-04-13] MEDS: PANTOPRAZOLE SOD 40 MG TABEC PO SCH ×2 (08:44→21:44)
[2018-04-13] MEDS: ATENOLOL 50 MG TAB PO SCH (08:45)
[2018-04-13] MEDS: AZITHROMYCIN 500MG/NS 250 ML 250 ML IV SCH (08:45)
[2018-04-13] MEDS ORDERED: CLOPIDOGREL BISULFATE 75 MG TAB PO SCH (09:00)
[2018-04-13] MEDS ORDERED: ASPIRIN 81 MG ENTERIC COATED PO SCH (09:00)
[2018-04-13] MEDS ORDERED: AMITRIPTYLINE HCL 25 MG TAB PO PRN (10:45)
--- NOTE | 2018-04-13 11:33 | NUR ---
Consult to Pulmonology for COPD, provided patient information for education to quit smoking and on COPD and management
--- NOTE | 2018-04-13 11:37 | History and Physical ---
She is a 62-year-old female patient of mine, presented to the emergency room with the complaint of cough, shortness of breath, and wheezing. HISTORY OF PRESENT ILLNESS: Ms. Jacqueline Newsome is a 62-year-old female patient, presented to the emergency room with failed outpatient treatment with antibiotics and antibiotic shot and steroids with my office as well as the urgent care center. Patient was given antibiotics, doxycycline, steroid and was given Rocephin shot, but patient did not improve. Patient started having chest pain and patient is having cough and patient is coughing on deep breathing. Patient has a yellowish/greenish phlegm and shortness of breath and wheezing and chest tightness. PAST MEDICAL HISTORY: Patient has a medical history of COPD, chronic atrial fibrillation, CHF, GA and hypertension, hypertensive heart disease. PAST SURGICAL HISTORY: Appendectomy, cholecystectomy, and hysterectomy. ALLERGIES: THE PATIENT IS ALLERGIC TO LATEX AND ADHESIVE TAPE. SOCIAL HISTORY: Patient is a smoker and denies using alcohol. FAMILY HISTORY: Hypertension. REVIEW OF SYSTEMS: Chest pain, shortness of breath, chest tightness, wheezing. PHYSICAL EXAMINATION GENERAL: She is a middle aged female patient, lying in bed, not in acute distress. VITALS: Temperature 99, pulse rate 90, respirations 20, blood pressure 140/ . HEENT: Normocephalic and atraumatic. LUNGS: Patient is using accessory muscles. On lung examination, bilateral equal fair air entry. Bilateral extensive rales and rhonchi present. HEART: S1 and S2 regular. No murmur, no gallop. ABDOMEN: Soft. Bowel sounds present. NEUROLOGICAL: No focal neurological deficits. ADMITTING IMPRESSION/DIAGNOSES 1. Chronic obstructive pulmonary disease exacerbation, failed outpatient treatment. 2. Chest pain. 3. Dyspnea. PLAN: Patient will be admitted with the above diagnoses. Patient will be treated with IV Solu-Medrol and IV Zithromax and Rocephin. Will obtain pulmonary consultation, Dr. Gabbi Eng. Job#: [id number] ARIANA
[2018-04-13] MEDS ORDERED: SODIUM CHLORIDE 0.9% 250ML 250 ML ONE (12:04)
[2018-04-13 12:06] VITALS: BP 115/60
[2018-04-13] MEDS: CEFTRIAXONE SOD 1 GM/NS 50 ML 50 ML IV SCH (12:14)
[2018-04-13] MEDS: IPRATROPIUM/ALBUTEROL SULFATE 4 GM INH INH SCH ×2 (13:00→19:00)
[2018-04-13] MEDS: ALBUTEROL SULF 0.083% NEB SOLN 3 ML NEB INH SCH ×4 (14:00→23:35)
[2018-04-13] MEDS: MORPHINE SULFATE INJ 4 MG/ML INJ 1ML IV PRN ×2 (14:00→20:22)
[2018-04-13 14:03] LABS: CREATINE KINASE MB 3.3 ng/mL (0-5.0)
[2018-04-13] MEDS: HYDROCODONE/CHLORPHENIRAMINE 5 ML LIQCR PO PRN (16:20)
[2018-04-13] MEDS: AMLODIPINE BESYLATE 5 MG TAB PO SCH (17:00)
[2018-04-13] MEDS ORDERED: AMLODIPINE BESYLATE 10 MG TAB PO SCH (17:00)
[2018-04-13 17:20] VITALS: BP 135/67
--- NOTE | 2018-04-13 18:42 | Consultation ---
DATE OF CONSULTATION: April 13, 2018 PULMONARY CONSULTATION REASON FOR ADMISSION: Shortness of breath. HISTORY OF PRESENT ILLNESS: Ms. Newsome is a 62-year-old lady who is very well known to me from office practice, having cough and congestion for the past few days. She has been given multiple rounds of antibiotic as well as steroid; however, she did not improve and presented to this hospital. She has been admitted for further management. At the time of my assessment, patient is still having the cough and wheezing. Minimal sputum production. Patient also has a chronic pain syndrome. REVIEW OF SYSTEMS: Denies fever, chills, or rigors. Denies any weight loss or weight gain. Denies nausea, vomiting, abdominal pain, diarrhea, constipation. Denies urinary urgency or frequency. Denies body ache, joint ache, or muscle ache. PAST MEDICAL HISTORY: Significant for COPD, atrial fibrillation, congestive heart failure, coronary artery disease, hypertension. SURGICAL HISTORY: Include hysterectomy, cholecystectomy, appendectomy. SOCIAL HISTORY: Patient lives at home. She is current smoker, unable to quit. ALLERGIES: ADVERSE REACTION TO ADHESIVE TAPE AND LATEX. FAMILY HISTORY: Positive for few members with hypertension. PHYSICAL EXAMINATION VITAL SIGNS: Temperature 97.5, pulse of 97, respiratory rate is 18, blood pressure is 135/67 mmHg. HEAD AND NECK: Normocephalic, nontraumatic. Pupils reactive. Oral mucosa moist. Neck supple. CHEST: Symmetrical expansion. Diminished air movement bilaterally. Wheezing present. Prolonged expiratory time. HEART: S1, S2 audible. Regular rate and rhythm. No murmurs. ABDOMEN: Soft, nontender. Bowel sounds present. EXTREMITIES: No edema. ELECTRONIC WARFARE LINGUIST: Awake, nonfocal. LABORATORY DATA: WBC 8.4, hemoglobin 14.6, hematocrit 43.4, platelet count of 214,000. Sodium 137, potassium 4.5, BUN of 13, creatinine is 0.7, glucose 179, albumin 3.5, LDL of 117, HDL of 42. INR 0.88. Chest x-ray; hyperinflated lung moreno, linear scarring in the right lower lobe. IMPRESSION 1. Chronic obstructive pulmonary disease exacerbation. 2. Recurrent tobacco use disorder. 3. Failure of outpatient treatment. 4. Hypertension. 5. Coronary artery disease. 6. Chronic pain syndrome. RECOMMENDATIONS: From pulmonary standpoint, agree with current management. Continue on steroid, bronchodilator, proton pump inhibitors. Patient is on aspirin and Plavix. Ambulate as tolerated. Smoking cessation discussed with patient. We will follow. Job#: [id number] BONILLA
[2018-04-13 20:00] VITALS: BP 123/58
[2018-04-13] MEDS: ONDANSETRON HCL INJ 2MG/ML 2ML 2 MG/ML VIAL IV PRN (20:22)
--- NOTE | 2018-04-13 20:23 | NUR ---
PATIENT C/O PAIN TO THE CHEST AREA FROM COUGHING, MEDICATED WITH MORPHINE AND ZOFRAN ORDERED. SHE WENT TO THE RESTROOM TO VOID PRIOR TO ADMINISTERING THE MEDICATIONS. CALL LIGHT WITHIN EASY REACH, INSTRUCTED TO CALL FOR ASSISTANCE NEEDED. RESPIRATORY THERAPIST IS IN THE ROOM WITH THE PATIENT ADMINISTERING HER BREATHING TREATMENT.
[2018-04-13 21:30] LABS: CREATINE KINASE MB 1.1 ng/mL (0-5.0)
[2018-04-14] VITALS (7 sets, daily range): BP systolic 120–133; BP diastolic 56–66
[2018-04-14] MEDS: NITROGLYCERIN 2% OINT 1 GM PKT TOP SCH ×4 (00:35→17:15)
--- NOTE | 2018-04-14 00:42 | NUR ---
PATIENT C/O SHORTNESS OF BREATH; HEAD OF BED ELEVATED, OXYGEN SATURATION ON ROOM AIR 91%. OXYGEN AT 2L/NC APPLIED, SATURATION INCREASED TO 96%. SHE C/O PAIN TO THE CHEST AREA DUE TO COUGHING BUT STATED "I DON'T WANT PAIN MEDICATION NOW".
[2018-04-14] MEDS: IPRATROPIUM/ALBUTEROL SULFATE 4 GM INH INH SCH ×4 (01:00→19:00)
--- NOTE | 2018-04-14 03:03 | NUR ---
PATIENT IS SOUNDLY ASLEEP WITHOUT RESPIRATORY DISTRESS, OXYGEN ON @2L/NC.
[2018-04-14] MEDS: ALBUTEROL SULF 0.083% NEB SOLN 3 ML NEB INH SCH ×6 (03:41→22:40)
[2018-04-14 05:51] LABS: BASOPHILS % 0.1 % (0.0-1.0); HEMATOCRIT 39.3 % (34.2-44.1); HEMOGLOBIN 13.1 g/dL (12.0-16.0); LYMPHOCYTES # (AUTO) 1.3 (1.0-3.2); LYMPHOCYTES % 5.1 % (18.0-39.1); MEAN CORPUSCULAR HEMOGLOBIN 32.3 pg (28-32); MEAN CORPUSCULAR HGB CONC 33.3 g/dL (31-35); MONOCYTES # (AUTO) 0.8 (0.2-0.8); MONOCYTES % 3.3 % (4.4-11.3); NEUTROPHILS # (AUTO) 23.2 (2.1-6.9); NEUTROPHILS % 90.4 % (38.7-80.0); PLATELET COUNT 231 x10e3/uL (140-360); RED BLOOD COUNT 4.05 x10e6/uL (3.6-5.1); RED CELL DISTRIBUTION WIDTH 11.8 % (11.7-14.4)
[2018-04-14 06:24] LABS: ALANINE AMINOTRANSFERASE 13 IU/L (0-55); ALBUMIN 3.5 g/dL (3.5-5.0); ALBUMIN/GLOBULIN RATIO 1.3 (0.8-2.0); ALKALINE PHOSPHATASE 98 IU/L (40-150); ANION GAP 11.5 mmol/L (8-16); BLOOD UREA NITROGEN 17 mg/dL (7-26); BUN/CREATININE RATIO 23 (6-25); CALCIUM 9.2 mg/dL (8.4-10.2); CARBON DIOXIDE 25 mmol/L (22-29); CHLORIDE 107 mmol/L (98-107); CREATININE, SERUM 0.75 mg/dL (0.57-1.11); EST GLOMERULAR FILTRATION RATE > 60 ML/MIN (60-); GLUCOSE 192 mg/dL (74-118); POTASSIUM 4.5 mmol/L (3.5-5.1); SODIUM 139 mmol/L (136-145)
--- NOTE | 2018-04-14 07:52 | NUR ---
Patient alert and responsive, in bed and no resp distress, LS with some scattered wheezing, on O2 2L due to SOB, will monitor.
[2018-04-14 08:04] LABS: BAND NEUTROPHILS % (MANUAL) 2 %; LYMPHOCYTES % (MANUAL) 5 % (19-48); MONOCYTES % (MANUAL) 2 % (3.4-9.0); NEUTROPHILS % (MANUAL) 91 % (40-74); PLATELET ESTIMATE ADEQUATE; PLATELET MORPHOLOGY COMMENT NORMAL; RBC MORPHOLOGY COMMENT NORMAL
[2018-04-14] MEDS: AZITHROMYCIN 500MG/NS 250 ML 250 ML IV SCH (08:23)
[2018-04-14] MEDS ORDERED: ASPIRIN 81 MG CHEW TAB PO SCH (09:00)
[2018-04-14] MEDS: BUDESONIDE/FORMOTEROL 160/4.5MCG INHALER INH SCH (09:00)
[2018-04-14] MEDS: ASPIRIN 81 MG CHEW TAB PO SCH (09:27)
[2018-04-14] MEDS: FAMOTIDINE 20 MG/2 ML VIAL IV SCH ×2 (09:27→21:58)
[2018-04-14] MEDS: PANTOPRAZOLE SOD 40 MG TABEC PO SCH ×2 (09:27→21:58)
[2018-04-14] MEDS: AMLODIPINE BESYLATE 5 MG TAB PO SCH ×2 (09:27→17:13)
[2018-04-14] MEDS: ATENOLOL 50 MG TAB PO SCH (09:28)
[2018-04-14] MEDS: CLOPIDOGREL BISULFATE 75 MG TAB PO SCH (09:28)
--- NOTE | 2018-04-14 10:33 | NUR ---
MEETS INPATIENT STATUS. REQUESTED INPATIENT ORDER. AWAITING REPLY
[2018-04-14] MEDS: MORPHINE SULFATE INJ 4 MG/ML INJ 1ML IV PRN ×2 (10:35→19:45)
[2018-04-14] MEDS: CEFTRIAXONE SOD 1 GM/NS 50 ML 50 ML IV SCH (10:45)
--- NOTE | 2018-04-14 10:47 | NUR ---
Patient appears anxious, chronic pain syndrome, refused nicotine patch as current smoker, medicated with morphine 2mg PRN at this time for chest area pain, cardiac enzymes normal, on Tele monitoring and normal, will monitor.
--- NOTE | 2018-04-14 13:18 | NUR ---
SOCIAL WORK INITIAL ASSESSMENT Sales Agent [employer] to bedside to discuss plan of care with patient/family. CM/SW role and care transitions discussed. Anticipated discharge plan discussed along with duration of care. CM/SW discussed patients right to make decisions in care. CM/SW work hours given. Patient lives: IN OWN HOUSE WITH FAMILY Admit/Transfer: VIA ED FROM HOME POA/Emergency contact: TERRY [phone] Current/Previous Home Health: NONE PCP/Follow-up Care: Sina SERNA Current/Previous DME: [facility] Other Services: NONE Employment Status: [employer] Areas of Concerns: CURRENT SMOKER Referral Needs: NONE Education Needs: NONE IMM/AMADOR given and signed (if applicable): NA Goal for discharge: RETURN HOME INDEPENDENTLY CM/SW left business card at the bedside with contact information. Name and number was also written on the patients whiteboard. Patient verbalized understanding of discussion. CM will follow-up with ongoing discharge and transition of care needs.
[2018-04-14] MEDS: IPRATROPIUM BROMIDE 0.02% 2.5 ML NEB NEB SCH ×3 (14:58→22:40)
--- NOTE | 2018-04-14 15:09 | NUR ---
Orders per Dr. Eng to admit inpatient during rounds at this time
[2018-04-14] MEDS: ENOXAPARIN SOD INJ 40 MG/0.4 ML SYR SC SCH (17:13)
--- NOTE | 2018-04-14 17:50 | NUR ---
Patient assisted to bathroom for shower
--- NOTE | 2018-04-14 19:00 | NUR ---
Patient completed shower and during rounds, offered to connect Tele and patient refused at the moment, will return to place by the on coming nurse
[2018-04-14] MEDS: ONDANSETRON HCL INJ 2MG/ML 2ML 2 MG/ML VIAL IV PRN (19:45)
--- NOTE | 2018-04-14 19:45 | NUR ---
PATIENT C/O PAIN TO THE CHEST AREA WITH PAIN SCORE #7, MEDICATED WITH MORPHINE AND ZOFRAN ORDERED. NO RESPIRATORY DISTRESS OBSERVED, INSTRUCTED TO CALL FOR ASSISTANCE UPON GETTING OUT OF THE BED DUE TO SIDE EFFECT FROM THE MEDICATIONS.
--- NOTE | 2018-04-14 23:35 | NUR ---
PATIENT IS SOUNDLY ASLEEP, NO RESPIRATORY DISTRESS OBSERVED. CALL LIGHT WITHIN EASY REACH, WILL CONTINUE TO MONITOR.
[2018-04-15] VITALS (7 sets, daily range): BP systolic 102–129; BP diastolic 57–83
[2018-04-15] MEDS: NITROGLYCERIN 2% OINT 1 GM PKT TOP SCH ×4 (00:40→18:00)
[2018-04-15] MEDS: IPRATROPIUM/ALBUTEROL SULFATE 4 GM INH INH SCH ×5 (01:00→23:53)
[2018-04-15] MEDS: ALBUTEROL SULF 0.083% NEB SOLN 3 ML NEB INH SCH ×7 (02:00→23:53)
--- NOTE | 2018-04-15 03:00 | NUR ---
WALKING ROUNDS MADE, PATIENT IS SOUNDLY ASLEEP WITHOUT RESPIRATORY DISTRESS, CALL LIGHT WITHIN EASY REACH.
[2018-04-15] MEDS: IPRATROPIUM BROMIDE 0.02% 2.5 ML NEB NEB SCH ×3 (05:23→19:42)
[2018-04-15 06:07] LABS: BASOPHILS % 0.2 % (0.0-1.0); EOSINOPHILS # (AUTO) 0.1 (0.0-0.4); EOSINOPHILS % 0.4 % (0.0-6.0); HEMATOCRIT 36.5 % (34.2-44.1); HEMOGLOBIN 12.7 g/dL (12.0-16.0); LYMPHOCYTES # (AUTO) 4.6 (1.0-3.2); LYMPHOCYTES % 25.7 % (18.0-39.1); MEAN CORPUSCULAR HEMOGLOBIN 33.5 pg (28-32); MEAN CORPUSCULAR HGB CONC 34.8 g/dL (31-35); MEAN CORPUSCULAR VOLUME 96.3 fL (81-99); MONOCYTES # (AUTO) 1.4 (0.2-0.8); MONOCYTES % 7.8 % (4.4-11.3); NEUTROPHILS # (AUTO) 11.8 (2.1-6.9); NEUTROPHILS % 65.4 % (38.7-80.0); PLATELET COUNT 204 x10e3/uL (140-360); RED BLOOD COUNT 3.79 x10e6/uL (3.6-5.1); RED CELL DISTRIBUTION WIDTH 12.3 % (11.7-14.4)
[2018-04-15] MEDS: HYDROCODONE/CHLORPHENIRAMINE 5 ML LIQCR PO PRN ×2 (06:48→20:19)
[2018-04-15] MEDS: BUDESONIDE/FORMOTEROL 160/4.5MCG INHALER INH SCH (07:34)
[2018-04-15] MEDS: ATENOLOL 50 MG TAB PO SCH (09:40)
[2018-04-15] MEDS: PREDNISONE 20 MG TAB PO SCH (09:40)
[2018-04-15] MEDS: PANTOPRAZOLE SOD 40 MG TABEC PO SCH ×2 (09:40→21:48)
[2018-04-15] MEDS ORDERED: SODIUM CHLORIDE 0.9% 250ML 250 ML ONE (09:43)
[2018-04-15] MEDS: CLOPIDOGREL BISULFATE 75 MG TAB PO SCH (09:45)
[2018-04-15] MEDS: AZITHROMYCIN 500MG/NS 250 ML 250 ML IV SCH (09:45)
[2018-04-15] MEDS: ASPIRIN 81 MG CHEW TAB PO SCH (09:45)
[2018-04-15] MEDS: AMLODIPINE BESYLATE 5 MG TAB PO SCH ×2 (09:45→17:34)
[2018-04-15] MEDS: FAMOTIDINE 20 MG/2 ML VIAL IV SCH ×2 (09:58→21:48)
[2018-04-15] MEDS: CEFTRIAXONE SOD 1 GM/NS 50 ML 50 ML IV SCH (11:45)
[2018-04-15] MEDS: ONDANSETRON HCL INJ 2MG/ML 2ML 2 MG/ML VIAL IV PRN ×2 (13:15→21:48)
[2018-04-15] MEDS: MORPHINE SULFATE INJ 4 MG/ML INJ 1ML IV PRN ×2 (13:15→21:48)
--- NOTE | 2018-04-15 13:15 | NUR ---
MEDICATED PER MD ORDER FOR 6/10 AHUMADA AND INTERMITTENT CHEST DISCOMFORT, EDUCATED TO NOT GET UP WITHOUT CALLING FOR ASSISTANCE, VERBALIZED UNDERSTANDING, CALL LIGHT WITHIN REACH
--- NOTE | 2018-04-15 14:01 | NUR ---
MD Sina SERNA INTO SEE PT, DISCUSSED POC
[2018-04-15] MEDS: BENZONATATE 100 MG CAP PO SCH ×2 (15:00→21:48)
[2018-04-15] MEDS: ENOXAPARIN SOD INJ 40 MG/0.4 ML SYR SC SCH (17:34)
--- NOTE | 2018-04-15 18:19 | NUR ---
AMBULATING IN HALLWAY, STEADY GAIT, FAMILY AT SIDE
--- NOTE | 2018-04-15 20:19 | NUR ---
NON PRODUCTIVE COUGH NOTED, WHEEZING HEARD ON LUNG SOUNDS. HEAD OF BED ELEVATED, PATIENT MEDICATED WITH TUSSIONEX ORDERED. SHE C/O PAIN TO THE CHEST AREA DUE TO COUGHING BUT STATED "I DON'T WANT PAIN MEDICATION NOW".
[2018-04-16] VITALS (7 sets, daily range): BP systolic 113–137; BP diastolic 59–72
--- NOTE | 2018-04-16 00:39 | NUR ---
PATIENT IS ASLEEP, NO RESPIRATORY DISTRESS OBSERVED, CALL LIGHT WITHIN EASY REACH.
--- NOTE | 2018-04-16 04:20 | NUR ---
PATIENT IS ASLEEP, SHE'S EASY TO AROUSE AND SHE DENIES SHORTNESS OF BREATH. SHE C/O MILD PAIN TO THE CHEST AREA BUT SHE DOES NOT WANT PAIN MEDICATION AT THIS TIME. CALL LIGHT WITHIN EASY REACH, INSTRUCTED TO CALL FOR ASSISTANCE NEEDED.
[2018-04-16 05:59] LABS: BASOPHILS % 0.3 % (0.0-1.0); EOSINOPHILS # (AUTO) 0.1 (0.0-0.4); EOSINOPHILS % 0.9 % (0.0-6.0); HEMATOCRIT 36.6 % (34.2-44.1); HEMOGLOBIN 12.9 g/dL (12.0-16.0); LYMPHOCYTES % 28.7 % (18.0-39.1); MEAN CORPUSCULAR HEMOGLOBIN 33.9 pg (28-32); MEAN CORPUSCULAR HGB CONC 35.2 g/dL (31-35); MEAN CORPUSCULAR VOLUME 96.1 fL (81-99); MONOCYTES # (AUTO) 1.2 (0.2-0.8); MONOCYTES % 8.4 % (4.4-11.3); NEUTROPHILS # (AUTO) 8.5 (2.1-6.9); NEUTROPHILS % 61.2 % (38.7-80.0); PLATELET COUNT 214 x10e3/uL (140-360); RED BLOOD COUNT 3.81 x10e6/uL (3.6-5.1); RED CELL DISTRIBUTION WIDTH 11.6 % (11.7-14.4)
[2018-04-16 06:42] LABS: ALANINE AMINOTRANSFERASE 25 IU/L (0-55); ALBUMIN 3.4 g/dL (3.5-5.0); ALBUMIN/GLOBULIN RATIO 1.4 (0.8-2.0); ALKALINE PHOSPHATASE 90 IU/L (40-150); ANION GAP 11.1 mmol/L (8-16); BLOOD UREA NITROGEN 15 mg/dL (7-26); BUN/CREATININE RATIO 21 (6-25); CALCIUM 8.8 mg/dL (8.4-10.2); CARBON DIOXIDE 29 mmol/L (22-29); CHLORIDE 104 mmol/L (98-107); CREATININE, SERUM 0.72 mg/dL (0.57-1.11); EST GLOMERULAR FILTRATION RATE > 60 ML/MIN (60-); GLUCOSE 118 mg/dL (74-118); POTASSIUM 4.1 mmol/L (3.5-5.1); SODIUM 140 mmol/L (136-145)
[2018-04-16] MEDS: NITROGLYCERIN 2% OINT 1 GM PKT TOP SCH ×4 (06:53→17:42)
[2018-04-16] MEDS: IPRATROPIUM/ALBUTEROL SULFATE 4 GM INH INH SCH ×3 (07:00→19:00)
[2018-04-16] MEDS: IPRATROPIUM BROMIDE 0.02% 2.5 ML NEB NEB SCH ×3 (07:32→20:10)
[2018-04-16] MEDS: ALBUTEROL SULF 0.083% NEB SOLN 3 ML NEB INH SCH ×5 (07:32→22:00)
[2018-04-16] MEDS: FAMOTIDINE 20 MG/2 ML VIAL IV SCH ×2 (08:21→20:46)
[2018-04-16] MEDS: AMLODIPINE BESYLATE 5 MG TAB PO SCH ×2 (08:22→16:45)
[2018-04-16] MEDS: BENZONATATE 100 MG CAP PO SCH ×3 (08:22→20:46)
[2018-04-16] MEDS: PANTOPRAZOLE SOD 40 MG TABEC PO SCH ×2 (08:22→20:46)
[2018-04-16] MEDS: ASPIRIN 81 MG CHEW TAB PO SCH (08:22)
[2018-04-16] MEDS: AZITHROMYCIN 500MG/NS 250 ML 250 ML IV SCH (08:22)
[2018-04-16] MEDS: CLOPIDOGREL BISULFATE 75 MG TAB PO SCH (08:22)
[2018-04-16] MEDS: PREDNISONE 20 MG TAB PO SCH (08:22)
[2018-04-16] MEDS: BUDESONIDE/FORMOTEROL 160/4.5MCG INHALER INH SCH (08:23)
[2018-04-16] MEDS: CEFTRIAXONE SOD 1 GM/NS 50 ML 50 ML IV SCH (11:47)
[2018-04-16] MEDS: MORPHINE SULFATE INJ 4 MG/ML INJ 1ML IV PRN ×2 (11:50→20:56)
[2018-04-16] MEDS: ONDANSETRON HCL INJ 2MG/ML 2ML 2 MG/ML VIAL IV PRN ×2 (11:50→20:55)
[2018-04-16] MEDS: ATENOLOL 50 MG TAB PO SCH (12:17)
--- NOTE | 2018-04-16 16:16 | NUR ---
PAGELisa SERNA FOR REQUEST ON O2 EVAL . PT DESATS TO 89% WITH 2L SUPPLEMENT WITH PHYSICAL THERAPY AWAITING FOR CALL BACK
[2018-04-16] MEDS: ENOXAPARIN SOD INJ 40 MG/0.4 ML SYR SC SCH (16:45)
--- NOTE | 2018-04-16 17:42 | NUR ---
02 EVALUATION COMPLETE. PT DOES NOT QUALIFY FOR O2 AT THIS TIME
[2018-04-17] VITALS: BP 141/74
[2018-04-17] MEDS: IPRATROPIUM/ALBUTEROL SULFATE 4 GM INH INH SCH ×2 (01:00→07:00)
[2018-04-17] MEDS: ALBUTEROL SULF 0.083% NEB SOLN 3 ML NEB INH SCH ×2 (02:00→07:06)
[2018-04-17 04:00] VITALS: BP 133/66
[2018-04-17] MEDS: NITROGLYCERIN 2% OINT 1 GM PKT TOP SCH ×2 (06:10)
[2018-04-17] MEDS: IPRATROPIUM BROMIDE 0.02% 2.5 ML NEB NEB SCH (07:06)
[2018-04-17] MEDS: BUDESONIDE/FORMOTEROL 160/4.5MCG INHALER INH SCH (07:22)
[2018-04-17 07:37] VITALS: BP 143/69
[2018-04-17 08:16] VITALS: BP 143/69
[2018-04-17] MEDS: PREDNISONE 20 MG TAB PO SCH (08:16)
[2018-04-17] MEDS: BENZONATATE 100 MG CAP PO SCH (08:16)
[2018-04-17] MEDS: PANTOPRAZOLE SOD 40 MG TABEC PO SCH (08:16)
[2018-04-17] MEDS: AMLODIPINE BESYLATE 5 MG TAB PO SCH (08:16)
[2018-04-17] MEDS: AZITHROMYCIN 500MG/NS 250 ML 250 ML IV SCH (08:16)
[2018-04-17] MEDS: FAMOTIDINE 20 MG/2 ML VIAL IV SCH (08:16)
[2018-04-17] MEDS: CLOPIDOGREL BISULFATE 75 MG TAB PO SCH (08:16)
[2018-04-17] MEDS: ASPIRIN 81 MG CHEW TAB PO SCH (08:16)
[2018-04-17] MEDS ORDERED: PREDNISONE20 MG PO (09:29)
[2018-04-17] MEDS ORDERED: CEFUROXIME500 MG PO (09:31)
[2018-04-17] MEDS ORDERED: NICODERM CQ1 EAC1 SUBD (09:31)
--- NOTE | 2018-04-17 10:00 | NUR ---
discharge instructions given and prescriptions. pt verbalized understanding. iv dc, pressure dressing applied and taped. pt is now off unit to home
--- NOTE | 2018-04-17 16:29 | Discharge Summary ---
This 62-year-old female patient of mine presented to the emergency room with complaint of shortness of breath, wheezing and cough. Admitting impression and diagnosis were COPD exacerbation. The patient had failed outpatient treatment. The patient was also having chest pain, shortness of breath, hypertension and coronary artery disease. HOSPITAL COURSE: The patient was admitted with the above diagnoses. The patient was started on treatment with IV Solu-Medrol, Zithromax and Rocephin. Pulmonary consultation with Dr. Rex Serna was called. The patient had a prolonged course because of underlying history of COPD and continuous smoking. Cultures were obtained which were negative. The patient had WBC count that went up to 26. She was treated, and that came down to 13. The patient had a chest x-ray which was negative for pneumonia. The patient had COPD. The patient had a home O2 evaluation done which she did not qualify for oxygen. The patient was strongly encouraged to stop smoking, and counseling was done. The patient was given a prescription for NicoDerm. The patient is to continue proton pump inhibitor and antibiotic Ceftin. The patient will be followed up as an outpatient. OLAF SERNA MD Job#: [id number]
== END 2018-04-17 09:50 | disposition home or self-care (01) | DRG 192 ==
LOC: ER 19:34 → INTOOBSV 22:18 → ERHOLD 22:18 → MED/SURG 22:31 → OBSVTOIN 04-14 15:09
PROVIDERS: ADMIT Internal Medicine; ATTEND Internal Medicine
DX: J44.0 Chronic obstructive pulmonary disease with (acute) lower respiratory infection (principal); J20.9 Acute bronchitis, unspecified; J44.1 Chronic obstructive pulmonary disease with (acute) exacerbation; R07.9 Chest pain, unspecified; I11.0 Hypertensive heart disease with heart failure; I50.9 Heart failure, unspecified; I25.2 Old myocardial infarction; I73.9 Peripheral vascular disease, unspecified; K21.9 Gastro-esophageal reflux disease without esophagitis; Z91.040 Latex allergy status; I48.2 Chronic atrial fibrillation; F17.210 Nicotine dependence, cigarettes, uncomplicated; G89.4 Chronic pain syndrome; I25.10 Atherosclerotic heart disease of native coronary artery without angina pectoris
CPT/HCPCS: 36415; 71045; 80053; 80061; 81001; 82550; 82553; 83605; 83735; 83880; 84484; 85025; 85379; 85610; 85730; 87040; 87086; 93005; 94640; 96376; 99284; G0378; J0456; J0696; J1650; J2270; J2405; J2930; J7040; J7050; J7512

== ENCOUNTER 2019-04-29 17:06 | Inpatient (IN) | payer OTHER ==
[~2019-04-29] VITALS: Ht 154.4 cm; Wt 71.7 kg
[~2019-04-29 17:06] MED LIST changes: -ALBUTEROL0.63 MG/3; +ALBUTEROL0.63 MG/3 INH; +CEFUROXIME500 MG PO; +NICODERM CQ1 EAC1 SUBD; +mucinex PO
[2019-04-29] MEDS ORDERED: METHYLPREDNISOLONE SOD SUCC 125 MG/2ML VIAL IV STA (17:41)
[2019-04-29] MEDS ORDERED: CEFTRIAXONE SOD 1 GM/NS 50 ML 50 ML IV SCH (18:00)
[2019-04-29] MEDS ORDERED: AZITHROMYCIN 500MG/NS 250 ML 250 ML IV SCH (18:30)
[2019-04-29] MEDS: CEFTRIAXONE SOD 1 GM/NS 50 ML 50 ML IV SCH (18:30)
[2019-04-29] MEDS ORDERED: MORPHINE SULFATE 2 MG/ML SYR 1ML IV PRN (18:45)
[2019-04-29] MEDS ORDERED: ONDANSETRON HCL INJ 2MG/ML 2ML 2 MG/ML VIAL IV PRN (18:45)
[2019-04-29 18:47] LABS: BASOPHILS # (AUTO) 0.1 (0.0-0.1); BASOPHILS % 0.5 % (0.0-1.0); EOSINOPHILS # (AUTO) 0.2 (0.0-0.4); EOSINOPHILS % 1.7 % (0.0-6.0); HEMATOCRIT 42.1 % (34.2-44.1); HEMOGLOBIN 14.7 g/dL (12.0-16.0); LYMPHOCYTES # (AUTO) 2.7 (1.0-3.2); LYMPHOCYTES % 26.6 % (18.0-39.1); MEAN CORPUSCULAR HEMOGLOBIN 32.5 pg (28-32); MEAN CORPUSCULAR HGB CONC 34.9 g/dL (31-35); MEAN CORPUSCULAR VOLUME 93.1 fL (81-99); MONOCYTES # (AUTO) 0.7 (0.2-0.8); MONOCYTES % 7.2 % (4.4-11.3); NEUTROPHILS # (AUTO) 6.5 (2.1-6.9); NEUTROPHILS % 63.5 % (38.7-80.0); PLATELET COUNT 219 x10e3/uL (140-360); RED BLOOD COUNT 4.52 x10e6/uL (3.6-5.1); RED CELL DISTRIBUTION WIDTH 11.1 % (11.7-14.4)
[2019-04-29] MEDS: IPRATROPIUM BROMIDE 0.02% 2.5 ML NEB NEB SCH (18:52)
[2019-04-29] MEDS: LEVALBUTEROL HCL SOLN NEBU 0.63 MG/3 ML NEB INH SCH (18:52)
[2019-04-29 18:59] LABS: INR 1.02; PROTHROMBIN TIME 13.6 seconds (11.9-14.5)
[2019-04-29 19:00] LABS: PARTIAL THROMBOPLASTIN TIME 33.5 seconds (23.8-35.5)
[2019-04-29 19:12] LABS: ALANINE AMINOTRANSFERASE 14 IU/L (0-55); ALBUMIN 3.9 g/dL (3.5-5.0); ALBUMIN/GLOBULIN RATIO 1.6 (0.8-2.0); ALKALINE PHOSPHATASE 119 IU/L (40-150); ANION GAP 14.8 mmol/L (8-16); BLOOD UREA NITROGEN 12 mg/dL (7-26); BUN/CREATININE RATIO 15 (6-25); CARBON DIOXIDE 21 mmol/L (22-29); CHLORIDE 105 mmol/L (98-107); CHOL/HDL RATIO 4.6 (3.0-3.6); CREATINE KINASE 88 IU/L (29-168); CREATININE, SERUM 0.78 mg/dL (0.57-1.11); EST GLOMERULAR FILTRATION RATE > 60 ML/MIN (60-); GLUCOSE 172 mg/dL (74-118); POTASSIUM 3.8 mmol/L (3.5-5.1); SODIUM 137 mmol/L (136-145)
[2019-04-29 19:15] LABS: CLARITY,URINE SL CLOUDY (CLEAR); COLOR,URINE YELLOW (YELLOW)
[2019-04-29 19:16] LABS: BILIRUBIN,URINE NEGATIVE (NEGATIVE); KETONES,URINE NEGATIVE (NEGATIVE); LEUKOCYTE ESTERASE ,URINE NEGATIVE (NEGATIVE); NITRITE,URINE NEGATIVE (NEGATIVE); PROTEIN,URINE DIPSTICK NEGATIVE (NEGATIVE); URINE UROBILINOGEN 1 mg/dL (0.2 - 1)
--- NOTE | 2019-04-29 19:17 | Diagnostic Imaging Report ---
EXAMINATION: CHEST SINGLE (PORTABLE) INDICATION: Cough. Shortness of breath ^COUGH, SOB ^[id number] ^[id number] COMPARISON: 04/12/2018 FINDINGS: TUBES and LINES: None. LUNGS: Perihilar peribronchial hazy opacity could be due to bronchitis. No consolidative pneumonia. PLEURA: No pleural effusion or pneumothorax. HEART AND MEDIASTINUM: The cardiomediastinal silhouette is unremarkable. BONES AND SOFT TISSUES: No acute osseous lesion. Soft tissues are unremarkable. UPPER ABDOMEN: No free air under the diaphragm. IMPRESSION: Perihilar peribronchial hazy opacity could be due to bronchitis. No consolidative pneumonia. Signed by: Dr. Martín Degroot M.D. on 04/29/2019 7:14 PM
[2019-04-29 19:20] LABS: WBC,URINE (MAN) 0-5 /HPF (0-5)
[2019-04-29 19:21] LABS: BACTERIA,URINE MODERATE /HPF; EPITHELIAL CELLS,URINE MANY /LPF; RBC,URINE 0-5 /HPF (0-5)
[2019-04-29] MEDS ORDERED: PROMETHAZINE HCL (IM) 25 MG/ML VIAL IM ONE (20:30)
[2019-04-29] MEDS ORDERED: EFFIENT10 MG PO (21:02)
[2019-04-30] MEDS: IPRATROPIUM BROMIDE 0.02% 2.5 ML NEB NEB SCH ×3 (00:22→06:20)
[2019-04-30] MEDS: LEVALBUTEROL HCL SOLN NEBU 0.63 MG/3 ML NEB INH SCH ×3 (00:22→06:20)
[2019-04-30] MEDS ORDERED: METHYLPREDNISOLONE SOD SUCC 125 MG/2ML VIAL IV SCH (02:00)
[2019-04-30 03:34] LABS: CREATINE KINASE 219 IU/L (29-168)
[2019-04-30] MEDS: CEFTRIAXONE SOD 1 GM/NS 50 ML 50 ML IV SCH (05:37)
[2019-04-30 06:57] LABS: ALANINE AMINOTRANSFERASE 15 IU/L (0-55); ALBUMIN 3.8 g/dL (3.5-5.0); ALBUMIN/GLOBULIN RATIO 1.5 (0.8-2.0); ALKALINE PHOSPHATASE 116 IU/L (40-150); BLOOD UREA NITROGEN 13 mg/dL (7-26); BUN/CREATININE RATIO 65 (6-25); CARBON DIOXIDE 19 mmol/L (22-29); CHLORIDE 108 mmol/L (98-107); CREATINE KINASE 224 IU/L (29-168); EST GLOMERULAR FILTRATION RATE > 60 ML/MIN (60-); GLUCOSE 169 mg/dL (74-118); SODIUM 139 mmol/L (136-145)
--- NOTE | 2019-04-30 07:30 | NUR ---
Report received from DIMPLE Veloz
[2019-04-30 07:45] LABS: HEMATOCRIT 44.6 % (34.2-44.1); HEMOGLOBIN 15.2 g/dL (12.0-16.0); RED BLOOD COUNT 4.69 x10e6/uL (3.6-5.1)
[2019-04-30 07:46] LABS: BASOPHILS % 0.1 % (0.0-1.0); LYMPHOCYTES % 11.1 % (18.0-39.1); MEAN CORPUSCULAR HEMOGLOBIN 32.4 pg (28-32); MEAN CORPUSCULAR HGB CONC 34.1 g/dL (31-35); MEAN CORPUSCULAR VOLUME 95.1 fL (81-99); MONOCYTES % 0.8 % (4.4-11.3); NEUTROPHILS % 87.2 % (38.7-80.0); PLATELET COUNT 248 x10e3/uL (140-360); RED CELL DISTRIBUTION WIDTH 11.1 % (11.7-14.4)
[2019-04-30 09:17] LABS: NEUTROPHILS # (AUTO) 7.9 (2.1-6.9)
[2019-04-30 09:18] LABS: MONOCYTES # (AUTO) 0.1 (0.2-0.8)
--- NOTE | 2019-04-30 09:39 | NUR ---
Patient's flagged nurse into the room. Patient stated that she wanted me to get the IV out of her arm in 5 minutes or she would take it out and that she was leaving. TERESA Hyman came into room with nurse and the patient stated that she was leaving and there was nothing we could say to change her mind. The patient refused to sign AMA paperwork because she said she had "family trouble" to tend to. The patient's IV was removed from her arm and she left the unit with her in no acute distress.
== END 2019-04-30 09:39 | disposition left against medical advice (07) | DRG 192 ==
LOC: ER 17:06 → ERHOLD 22:43
PROVIDERS: ADMIT Internal Medicine; ATTEND Internal Medicine
DX: J44.0 Chronic obstructive pulmonary disease with (acute) lower respiratory infection (principal); J20.9 Acute bronchitis, unspecified; J44.1 Chronic obstructive pulmonary disease with (acute) exacerbation; Z83.3 Family history of diabetes mellitus; Z82.49 Family history of ischemic heart disease and other diseases of the circulatory system; F17.210 Nicotine dependence, cigarettes, uncomplicated; I25.10 Atherosclerotic heart disease of native coronary artery without angina pectoris; Z95.5 Presence of coronary angioplasty implant and graft; Z90.49 Acquired absence of other specified parts of digestive tract; Z91.040 Latex allergy status; Z91.048 Other nonmedicinal substance allergy status; I10 Essential (primary) hypertension; E53.8 Deficiency of other specified B group vitamins; F41.9 Anxiety disorder, unspecified; K21.9 Gastro-esophageal reflux disease without esophagitis; M19.90 Unspecified osteoarthritis, unspecified site
CPT/HCPCS: 36415; 71045; 80053; 80061; 81001; 82550; 82553; 83735; 83880; 84484; 85025; 85610; 85730; 87040; 87071; 87086; 87205; 93005; 94640; 96372; 96374; 99284; J0456; J0696; J2270; J2405; J2930

== ENCOUNTER → 2019-07-26 | Outpatient (CLI) | payer OTHER ==
[~2019-07-26] MED LIST changes: +EFFIENT10 MG PO
--- NOTE | 2019-07-26 15:34 | Diagnostic Imaging Report ---
EXAMINATION: CHEST 2 VIEWS INDICATION: Cough COMPARISON: Chest radiograph 04/29/2019 FINDINGS: LINES/TUBES:None LUNGS:The lungs are mildly hyperinflated. No focal consolidation or pulmonary edema. Unchanged right infrahilar atelectasis/scarring. PLEURA:No pleural effusion or pneumothorax. MEDIASTINUM:The cardiomediastinal silhouette appears normal in size and shape. BONES/SOFT TISSUES:No acute osseous injury. ABDOMEN:No free air under the diaphragm. IMPRESSION: No focal pneumonia or pulmonary edema. Unchanged right infrahilar atelectasis/scarring. Signed by: Deshaun Macias MD on 07/26/2019 3:30 PM
== END ==
LOC: RAD 14:51
PROVIDERS: ATTEND Internal Medicine
DX: J44.9 Chronic obstructive pulmonary disease, unspecified (principal); R05 Cough
CPT/HCPCS: 71046

== ENCOUNTER → 2019-12-09 | Outpatient (CLI) | payer OTHER | LOC: MAMMO 11:58 | PROVIDERS: ATTEND Internal Medicine | DX: Z12.31 Encounter for screening mammogram for malignant neoplasm of breast (principal) | CPT/HCPCS: 77067 ==

== ENCOUNTER → 2021-02-04 | Day surgery (SDC) | payer OTHER ==
[2021-02-02 08:52] LABS: BASOPHILS # (AUTO) 0.1 (0.0-0.1); BASOPHILS % 0.9 % (0.0-1.0); EOSINOPHILS # (AUTO) 0.2 (0.0-0.4); EOSINOPHILS % 2.1 % (0.0-6.0); HEMATOCRIT 44.9 % (34.2-44.1); HEMOGLOBIN 15.6 g/dL (12.0-16.0); LYMPHOCYTES # (AUTO) 2.4 (1.0-3.2); LYMPHOCYTES % 29.3 % (18.0-39.1); MEAN CORPUSCULAR HEMOGLOBIN 32.6 pg (28-32); MEAN CORPUSCULAR HGB CONC 34.7 g/dL (31-35); MEAN CORPUSCULAR VOLUME 93.7 fL (81-99); MONOCYTES # (AUTO) 0.9 (0.2-0.8); MONOCYTES % 10.3 % (4.4-11.3); NEUTROPHILS # (AUTO) 4.7 (2.1-6.9); NEUTROPHILS % 56.9 % (38.7-80.0); PLATELET COUNT 226 x10e3/uL (140-360); RED BLOOD COUNT 4.79 x10e6/uL (3.6-5.1)
[~2021-02-04] MED LIST changes: +FENTANYL CITRATE/PF 100MCG/2 ML INJ ONE; +FLONASE ALLERG9.9 ML INH; +LIDOCAINE HCL 2% LOCAL INJ 5 ML SDV VIAL INJ ONE; +MIDAZOLAM HCL 2 MG/2 ML VIAL ONE; +NITROGLYCERIN0.4 MG SL; +PROPOFOL IV EMULSION 10 MG/ML 20 ML VIAL ONE; +TUMS ULTRA400 MG PO
[2021-02-04 10:10] VITALS: BP 160/89
== END | disposition home or self-care (01) ==
LOC: OR 06:50
PROVIDERS: ATTEND Internal Medicine Gastroenterology
DX: K21.00 Gastro-esophageal reflux disease with esophagitis, without bleeding (principal); K29.50 Unspecified chronic gastritis without bleeding; K44.9 Diaphragmatic hernia without obstruction or gangrene; I10 Essential (primary) hypertension; J44.9 Chronic obstructive pulmonary disease, unspecified; I25.10 Atherosclerotic heart disease of native coronary artery without angina pectoris; I11.0 Hypertensive heart disease with heart failure; I50.9 Heart failure, unspecified; F17.200 Nicotine dependence, unspecified, uncomplicated; Z91.040 Latex allergy status; Z01.810 Encounter for preprocedural cardiovascular examination; Z01.812 Encounter for preprocedural laboratory examination; Z20.822 Contact with and (suspected) exposure to COVID-19; Z79.82 Long term (current) use of aspirin
CPT/HCPCS: 36415; 43239; 85025; 93005; J2001; J2250; J2704; J3010; U0002

== ENCOUNTER 2021-05-11 20:32 | Observation (INO) | payer OTHER ==
[~2021-05-11] VITALS: Ht 154.4 cm; Wt 71.7 kg
[~2021-05-11 20:32] MED LIST changes: -FENTANYL CITRATE/PF 100MCG/2 ML INJ ONE; -LIDOCAINE HCL 2% LOCAL INJ 5 ML SDV VIAL INJ ONE; -MIDAZOLAM HCL 2 MG/2 ML VIAL ONE; -PROPOFOL IV EMULSION 10 MG/ML 20 ML VIAL ONE
[2021-05-11 21:16] LABS: BASOPHILS # (AUTO) 0.1 (0.0-0.1); BASOPHILS % 0.5 % (0.0-1.0); EOSINOPHILS # (AUTO) 0.2 (0.0-0.4); EOSINOPHILS % 2.5 % (0.0-6.0); HEMATOCRIT 44.6 % (34.2-44.1); HEMOGLOBIN 15.1 g/dL (12.0-16.0); LYMPHOCYTES # (AUTO) 3.2 (1.0-3.2); LYMPHOCYTES % 34.9 % (18.0-39.1); MEAN CORPUSCULAR HEMOGLOBIN 31.9 pg (28-32); MEAN CORPUSCULAR HGB CONC 33.9 g/dL (31-35); MEAN CORPUSCULAR VOLUME 94.3 fL (81-99); MONOCYTES # (AUTO) 0.8 (0.2-0.8); MONOCYTES % 8.7 % (4.4-11.3); NEUTROPHILS # (AUTO) 4.9 (2.1-6.9); NEUTROPHILS % 53.2 % (38.7-80.0); PLATELET COUNT 253 x10e3/uL (140-360); RED BLOOD COUNT 4.73 x10e6/uL (3.6-5.1); RED CELL DISTRIBUTION WIDTH 11.6 % (11.7-14.4)
[2021-05-11 21:32] LABS: ALBUMIN/GLOBULIN RATIO 1.3 (0.8-2.0); ANION GAP 14.8 mmol/L (8-16); CALCIUM 9.4 mg/dL (8.4-10.2); CREATININE, SERUM 0.82 mg/dL (0.57-1.11); POTASSIUM 3.8 mmol/L (3.5-5.1)
[2021-05-11] MEDS ORDERED: ONDANSETRON HCL INJ 2MG/ML 2ML 2 MG/ML VIAL IV STA (22:02)
[2021-05-11] MEDS ORDERED: Morphine 4mg Syringe 4 MG/ML INJ IV ONE (22:15)
[2021-05-11] MEDS ORDERED: ASPIRIN 81 MG CHEW TAB PO ONE (22:45)
[2021-05-11 23:02] LABS: CREATINE KINASE MB 1.1 ng/mL (0-5.0)
[2021-05-12] VITALS: BP 128/74
[2021-05-12 00:37] VITALS: BP 128/74
[2021-05-12] MEDS ORDERED: ROSUVASTATIN CA40 MG (01:04)
[2021-05-12 01:12] VITALS: BP 128/74
[2021-05-12] MEDS ORDERED: Morphine 2mg Syringe 2 MG/ML SYR IV PRN (01:45)
[2021-05-12] MEDS ORDERED: ONDANSETRON HCL INJ 2MG/ML 2ML 2 MG/ML VIAL IV PRN (01:45)
[2021-05-12 04:00] VITALS: BP 141/80
[2021-05-12 07:19] LABS: CREATINE KINASE MB 0.8 ng/mL (0-5.0)
[2021-05-12] MEDS ORDERED: PANTOPRAZOLE SOD 40 MG TABEC PO PRN (08:00)
[2021-05-12] MEDS ORDERED: BUDESONIDE/FORMOTEROL 160/4.5MCG INHALER INH PRN (08:00)
[2021-05-12 08:17] VITALS: BP 150/79
[2021-05-12 08:24] LABS: CHOL/HDL RATIO 5.6 (3.0-3.6)
[2021-05-12] MEDS ORDERED: PRASUGREL 10 MG TAB PO SCH (09:00)
[2021-05-12] MEDS ORDERED: AMLODIPINE BESYLATE 5 MG TAB PO SCH (09:00)
[2021-05-12] MEDS ORDERED: ASPIRIN 81 MG CHEW TAB PO SCH (09:00)
[2021-05-12] MEDS ORDERED: FUROSEMIDE INJ 10 MG/ML 2 ML VIAL IV SCH (09:15)
[2021-05-12] MEDS ORDERED: ENOXAPARIN SOD INJ 40 MG/0.4 ML SYR SC SCH (17:00)
[2021-05-12] MEDS ORDERED: ATORVASTATIN 40 MG TAB PO SCH (21:00)
== END 2021-05-12 11:33 | disposition left against medical advice (07) ==
LOC: ER 20:52 → ERHOLD 22:38 → MED/SURG 23:35
PROVIDERS: ADMIT Internal Medicine; ATTEND Internal Medicine
DX: R07.89 Other chest pain (principal); I25.10 Atherosclerotic heart disease of native coronary artery without angina pectoris; Z95.5 Presence of coronary angioplasty implant and graft; E66.9 Obesity, unspecified; Z68.30 Body mass index [BMI] 30.0-30.9, adult; I48.20 Chronic atrial fibrillation, unspecified; Z79.01 Long term (current) use of anticoagulants; I25.2 Old myocardial infarction; F17.210 Nicotine dependence, cigarettes, uncomplicated; I11.0 Hypertensive heart disease with heart failure; I50.9 Heart failure, unspecified; Z20.822 Contact with and (suspected) exposure to COVID-19; J81.1 Chronic pulmonary edema
CPT/HCPCS: 36415; 71045; 80053; 80061; 82550; 82553; 83036; 83880; 84484; 85025; 93005; 94799; 99283; G0378; J2270; J2405; U0002

== ENCOUNTER → 2022-06-02 | Day surgery (SDC) | payer MEDICARE, OTHER ==
[2022-05-27 11:19] LABS: BASOPHILS % 0.5 % (0.0-1.0); EOSINOPHILS # (AUTO) 0.1 (0.0-0.4); EOSINOPHILS % 1.5 % (0.0-6.0); HEMATOCRIT 46.7 % (34.2-44.1); LYMPHOCYTES # (AUTO) 2.5 (1.0-3.2); MEAN CORPUSCULAR HEMOGLOBIN 32.1 pg (28-32); MEAN CORPUSCULAR HGB CONC 34.3 g/dL (31-35); MEAN CORPUSCULAR VOLUME 93.8 fL (81-99); MONOCYTES # (AUTO) 0.7 (0.2-0.8); NEUTROPHILS # (AUTO) 5.3 (2.1-6.9); NEUTROPHILS % 60.8 % (38.7-80.0); PLATELET COUNT 219 x10e3/uL (140-360); RED BLOOD COUNT 4.98 x10e6/uL (3.6-5.1); RED CELL DISTRIBUTION WIDTH 11.4 % (11.7-14.4)
[~2022-06-02] MED LIST changes: +CARVEDILOL12.5 MG PO; +FENTANYL CITRATE/PF 100MCG/2 ML INJ ONE; +ISOSORBIDE MONO30 MG PO; +LIDOCAINE HCL 2% LOCAL INJ 5 ML SDV VIAL INJ ONE; +PROPOFOL IV EMULSION 10 MG/ML 20 ML VIAL ONE; +ROSUVASTATIN CA40 MG
[2022-06-02 08:20] VITALS: BP 137/64
== END | disposition home or self-care (01) ==
LOC: OR 06:05
PROVIDERS: ATTEND Internal Medicine Gastroenterology
DX: R13.10 Dysphagia, unspecified (principal); K29.70 Gastritis, unspecified, without bleeding; K44.9 Diaphragmatic hernia without obstruction or gangrene; K21.9 Gastro-esophageal reflux disease without esophagitis; J44.9 Chronic obstructive pulmonary disease, unspecified; I25.2 Old myocardial infarction; I11.0 Hypertensive heart disease with heart failure; I50.9 Heart failure, unspecified; E78.00 Pure hypercholesterolemia, unspecified; M81.0 Age-related osteoporosis without current pathological fracture; F17.210 Nicotine dependence, cigarettes, uncomplicated; Z91.040 Latex allergy status; Z91.048 Other nonmedicinal substance allergy status; Z01.810 Encounter for preprocedural cardiovascular examination; Z01.812 Encounter for preprocedural laboratory examination; Z79.82 Long term (current) use of aspirin; Z79.899 Other long term (current) drug therapy
CPT/HCPCS: 36415; 43233; 43239; 85025; 88305; 88342; 93005; J2001; J2704; J3010; 43450

== ENCOUNTER 2022-07-03 19:47 | Emergency (ER) | payer MEDICARE, OTHER ==
[~2022-07-03] VITALS: Ht 306.8 cm; Wt 71.7 kg
[~2022-07-03 19:47] MED LIST changes: -FENTANYL CITRATE/PF 100MCG/2 ML INJ ONE; -LIDOCAINE HCL 2% LOCAL INJ 5 ML SDV VIAL INJ ONE; -PROPOFOL IV EMULSION 10 MG/ML 20 ML VIAL ONE
[2022-07-03 20:20] LABS: BASOPHILS # (AUTO) 0.1 (0.0-0.1); BASOPHILS % 0.9 % (0.0-1.0); EOSINOPHILS # (AUTO) 0.2 (0.0-0.4); EOSINOPHILS % 2.6 % (0.0-6.0); HEMOGLOBIN 15.3 g/dL (12.0-16.0); LYMPHOCYTES # (AUTO) 2.9 (1.0-3.2); LYMPHOCYTES % 31.5 % (18.0-39.1); MEAN CORPUSCULAR HEMOGLOBIN 32.4 pg (28-32); MEAN CORPUSCULAR HGB CONC 34.8 g/dL (31-35); MEAN CORPUSCULAR VOLUME 93.2 fL (81-99); MONOCYTES # (AUTO) 0.8 (0.2-0.8); MONOCYTES % 8.9 % (4.4-11.3); NEUTROPHILS # (AUTO) 5.2 (2.1-6.9); NEUTROPHILS % 55.9 % (38.7-80.0); PLATELET COUNT 223 x10e3/uL (140-360); RED BLOOD COUNT 4.72 x10e6/uL (3.6-5.1); RED CELL DISTRIBUTION WIDTH 11.5 % (11.7-14.4)
[2022-07-03] MEDS ORDERED: KETOROLAC TROMETHAMINE 30 MG/ML VIAL IV STA (20:37)
[2022-07-03] MEDS ORDERED: ONDANSETRON HCL INJ 2MG/ML 2ML 2 MG/ML VIAL IV STA ×2 (20:37→21:27)
[2022-07-03 20:42] LABS: ALBUMIN 3.9 g/dL (3.5-5.0); ALBUMIN/GLOBULIN RATIO 1.3 (0.8-2.0); ANION GAP 14.5 mmol/L (8-16); CALCIUM 8.9 mg/dL (8.4-10.2); CREATININE, SERUM 0.85 mg/dL (0.57-1.11); POTASSIUM 4.5 mmol/L (3.5-5.1)
[2022-07-03 21:05] LABS: CLARITY,URINE CLEAR (CLEAR); COLOR,URINE YELLOW (YELLOW); LEUKOCYTE ESTERASE ,URINE NEGATIVE (NEGATIVE); NITRITE,URINE NEGATIVE (NEGATIVE)
[2022-07-03 21:06] LABS: KETONES,URINE NEGATIVE (NEGATIVE); PROTEIN,URINE DIPSTICK TRACE (NEGATIVE); URINE UROBILINOGEN 0.2 mg/dL (0.2 - 1)
[2022-07-03 21:08] LABS: EPITHELIAL CELLS,URINE FEW /LPF
[2022-07-03] MEDS ORDERED: Morphine 4mg INJECTION 4 MG/ML INJ IV STA (21:27)
[2022-07-03] MEDS ORDERED: ONDANSETRON ODT4 MG PO (21:58)
[2022-07-03] MEDS ORDERED: ACETAMINOPHEN-1 EAC4 PO (21:58)
[2022-07-03] MEDS ORDERED: HYDRALAZINE HCL 20 MG/ML VIAL IV STA (22:02)
[2022-07-03 22:32] VITALS: BP 170/95
== END 2022-07-03 22:34 | disposition home or self-care (01) ==
LOC: ER 20:03
DX: R10.9 Unspecified abdominal pain (principal); K57.90 Diverticulosis of intestine, part unspecified, without perforation or abscess without bleeding; K44.9 Diaphragmatic hernia without obstruction or gangrene; I10 Essential (primary) hypertension; J44.9 Chronic obstructive pulmonary disease, unspecified; I50.9 Heart failure, unspecified; K21.9 Gastro-esophageal reflux disease without esophagitis; I25.2 Old myocardial infarction; Z85.828 Personal history of other malignant neoplasm of skin
CPT/HCPCS: 36415; 74176; 80053; 81001; 85025; 99284; J0360; J1885; J2270; J2405

== ENCOUNTER → 2022-07-20 | Outpatient (CLI) | payer MEDICARE, OTHER ==
[~2022-07-20] MED LIST changes: +ACETAMINOPHEN-1 EAC4 PO; +ONDANSETRON ODT4 MG PO
== END ==
LOC: MAMMO 08:51
PROVIDERS: ATTEND Internal Medicine
DX: Z12.31 Encounter for screening mammogram for malignant neoplasm of breast (principal); M85.88 Other specified disorders of bone density and structure, other site
CPT/HCPCS: 77067; 77080

== ENCOUNTER → 2022-10-13 | Day surgery (SDC) | payer OTHER, MEDICARE ==
[2022-10-10 13:59] LABS: BASOPHILS % 0.4 % (0.0-1.0); EOSINOPHILS # (AUTO) 0.2 (0.0-0.4); EOSINOPHILS % 1.9 % (0.0-6.0); HEMATOCRIT 43.5 % (34.2-44.1); HEMOGLOBIN 14.8 g/dL (12.0-16.0); LYMPHOCYTES % 22.7 % (18.0-39.1); MEAN CORPUSCULAR HEMOGLOBIN 32.2 pg (28-32); MEAN CORPUSCULAR VOLUME 94.8 fL (81-99); MONOCYTES # (AUTO) 0.8 (0.2-0.8); MONOCYTES % 9.2 % (4.4-11.3); NEUTROPHILS # (AUTO) 5.9 (2.1-6.9); NEUTROPHILS % 65.4 % (38.7-80.0); PLATELET COUNT 204 x10e3/uL (140-360); RED BLOOD COUNT 4.59 x10e6/uL (3.6-5.1); RED CELL DISTRIBUTION WIDTH 11.8 % (11.7-14.4)
[~2022-10-13] MED LIST changes: +CRESTOR10 MG PO; +LACTATED RINGER'S 1,000 ML ONE; +LIDOCAINE HCL 2% LOCAL INJ 5 ML SDV VIAL INJ ONE; +ONDANSETRON HCL INJ 2MG/ML 2ML 2 MG/ML VIAL ONE; +POVIDONE IODINE 0.05% 0.05 % ML PO ONE; +PROPOFOL IV EMULSION 10 MG/ML 20 ML VIAL ONE
[2022-10-13 08:35] VITALS: TEMP 97.3
[2022-10-13 08:59] VITALS: BP 145/84; PULSE 54; RESP 18; O2SAT 99
== END | disposition home or self-care (01) ==
LOC: OR 06:12
PROVIDERS: ATTEND Internal Medicine Gastroenterology
DX: R13.10 Dysphagia, unspecified (principal); K29.50 Unspecified chronic gastritis without bleeding; K21.9 Gastro-esophageal reflux disease without esophagitis; K44.9 Diaphragmatic hernia without obstruction or gangrene; K59.00 Constipation, unspecified; K58.9 Irritable bowel syndrome, unspecified; I25.10 Atherosclerotic heart disease of native coronary artery without angina pectoris; I25.2 Old myocardial infarction; I11.0 Hypertensive heart disease with heart failure; I50.9 Heart failure, unspecified; J44.9 Chronic obstructive pulmonary disease, unspecified; E78.5 Hyperlipidemia, unspecified; Z91.040 Latex allergy status; Z91.048 Other nonmedicinal substance allergy status; Z01.810 Encounter for preprocedural cardiovascular examination; Z01.812 Encounter for preprocedural laboratory examination; Z79.82 Long term (current) use of aspirin; Z79.899 Other long term (current) drug therapy; Z98.61 Coronary angioplasty status
CPT/HCPCS: 36415; 43233; 43239; 85025; 88305; 88342; 93005; J2001; J2405; J2704; J7121; 43450; 88312

== ENCOUNTER → 2023-11-02 | Day surgery (SDC) | payer OTHER, MEDICARE ==
[2023-10-30 10:26] LABS: BASOPHILS # (AUTO) 0.1 (0.0-0.1); BASOPHILS % 0.6 % (0.0-1.0); EOSINOPHILS # (AUTO) 0.2 (0.0-0.4); EOSINOPHILS % 2.1 % (0.0-6.0); HEMATOCRIT 46.9 % (34.2-44.1); HEMOGLOBIN 16.5 g/dL (12.0-16.0); LYMPHOCYTES # (AUTO) 2.6 (1.0-3.2); LYMPHOCYTES % 30.2 % (18.0-39.1); MEAN CORPUSCULAR HEMOGLOBIN 33.5 pg (28-32); MEAN CORPUSCULAR HGB CONC 35.2 g/dL (31-35); MEAN CORPUSCULAR VOLUME 95.1 fL (81-99); MONOCYTES # (AUTO) 0.8 (0.2-0.8); MONOCYTES % 9.3 % (4.4-11.3); NEUTROPHILS % 57.6 % (38.7-80.0); PLATELET COUNT 214 x10e3/uL (140-360); RED BLOOD COUNT 4.93 x10e6/uL (3.6-5.1); RED CELL DISTRIBUTION WIDTH 10.8 % (11.7-14.4); WHITE BLOOD COUNT 8.74 x10e3/uL (4.8-10.8)
[~2023-11-02] MED LIST changes: +FENTANYL CITRATE/PF 100MCG/2 ML INJ ONE; -LACTATED RINGER'S 1,000 ML ONE; -POVIDONE IODINE 0.05% 0.05 % ML PO ONE; +TELMISARTAN40 MG PO; +[UNRECOGNIZED DRUG - OTHER] TD
[2023-11-02] MEDS: LACTATED RINGER'S 1,000 ML ONE (06:08)
[2023-11-02 08:00] VITALS: BP 136/82; PULSE 68; RESP 17; O2SAT 97
== END | disposition home or self-care (01) ==
LOC: OR 05:42
PROVIDERS: ATTEND Internal Medicine Gastroenterology
DX: R13.10 Dysphagia, unspecified (principal); K29.50 Unspecified chronic gastritis without bleeding; K31.89 Other diseases of stomach and duodenum; K44.9 Diaphragmatic hernia without obstruction or gangrene; K21.9 Gastro-esophageal reflux disease without esophagitis; K58.9 Irritable bowel syndrome, unspecified; I25.10 Atherosclerotic heart disease of native coronary artery without angina pectoris; I11.0 Hypertensive heart disease with heart failure; I50.9 Heart failure, unspecified; J44.9 Chronic obstructive pulmonary disease, unspecified; N20.0 Calculus of kidney; F17.200 Nicotine dependence, unspecified, uncomplicated; Z91.040 Latex allergy status; Z91.048 Other nonmedicinal substance allergy status; Z01.810 Encounter for preprocedural cardiovascular examination; Z01.812 Encounter for preprocedural laboratory examination; Z79.899 Other long term (current) drug therapy; Z68.22 Body mass index [BMI] 22.0-22.9, adult; Z98.890 Other specified postprocedural states; Z95.5 Presence of coronary angioplasty implant and graft; Z85.828 Personal history of other malignant neoplasm of skin
CPT/HCPCS: 36415; 43233; 43239; 85025; 88305; 88342; 93005; J2001; J2405; J2704; J3010; J7121

== ENCOUNTER → 2024-02-29 | Day surgery (SDC) | payer OTHER, MEDICARE ==
[2024-02-26 09:42] LABS: BASOPHILS # (AUTO) 0.1 (0.0-0.1); BASOPHILS % 0.5 % (0.0-1.0); EOSINOPHILS # (AUTO) 0.2 (0.0-0.4); HEMOGLOBIN 16.3 g/dL (12.0-16.0); LYMPHOCYTES # (AUTO) 2.4 (1.0-3.2); LYMPHOCYTES % 26.1 % (18.0-39.1); MEAN CORPUSCULAR HEMOGLOBIN 32.9 pg (28-32); MEAN CORPUSCULAR HGB CONC 34.7 g/dL (31-35); MEAN CORPUSCULAR VOLUME 94.8 fL (81-99); MONOCYTES # (AUTO) 0.9 (0.2-0.8); MONOCYTES % 9.9 % (4.4-11.3); NEUTROPHILS # (AUTO) 5.6 (2.1-6.9); NEUTROPHILS % 61.3 % (38.7-80.0); PLATELET COUNT 223 x10e3/uL (140-360); RED BLOOD COUNT 4.96 x10e6/uL (3.6-5.1); RED CELL DISTRIBUTION WIDTH 11.1 % (11.7-14.4); WHITE BLOOD COUNT 9.13 x10e3/uL (4.8-10.8)
[~2024-02-29] MED LIST changes: +ALBUTEROL0.63 MG/3 NEB; -FENTANYL CITRATE/PF 100MCG/2 ML INJ ONE; -ONDANSETRON HCL INJ 2MG/ML 2ML 2 MG/ML VIAL ONE; +[UNRECOGNIZED DRUG - OTHER] PO
[2024-02-29] MEDS: LACTATED RINGER'S 1,000 ML ONE (08:37)
[2024-02-29] MEDS: ONDANSETRON HCL INJ 2MG/ML 2ML 2 MG/ML VIAL ONE (09:06)
[2024-02-29 11:10] VITALS: BP 124/71; PULSE 62; RESP 16; TEMP 97.5; O2SAT 96
== END | disposition home or self-care (01) ==
LOC: OR 07:20
PROVIDERS: ATTEND Internal Medicine Gastroenterology
DX: K22.2 Esophageal obstruction (principal); K29.50 Unspecified chronic gastritis without bleeding; K31.89 Other diseases of stomach and duodenum; K44.9 Diaphragmatic hernia without obstruction or gangrene; K57.90 Diverticulosis of intestine, part unspecified, without perforation or abscess without bleeding; K58.9 Irritable bowel syndrome, unspecified; E78.00 Pure hypercholesterolemia, unspecified; I25.10 Atherosclerotic heart disease of native coronary artery without angina pectoris; I25.2 Old myocardial infarction; I11.0 Hypertensive heart disease with heart failure; I50.9 Heart failure, unspecified; J44.9 Chronic obstructive pulmonary disease, unspecified; E78.5 Hyperlipidemia, unspecified; I73.9 Peripheral vascular disease, unspecified; G43.909 Migraine, unspecified, not intractable, without status migrainosus; N20.0 Calculus of kidney; M06.9 Rheumatoid arthritis, unspecified; F17.210 Nicotine dependence, cigarettes, uncomplicated; Z91.040 Latex allergy status; Z91.048 Other nonmedicinal substance allergy status; Z01.810 Encounter for preprocedural cardiovascular examination; Z01.812 Encounter for preprocedural laboratory examination; Z79.82 Long term (current) use of aspirin; Z79.899 Other long term (current) drug therapy; Z68.23 Body mass index [BMI] 23.0-23.9, adult; Z95.5 Presence of coronary angioplasty implant and graft; Z85.828 Personal history of other malignant neoplasm of skin; Z80.0 Family history of malignant neoplasm of digestive organs
CPT/HCPCS: 36415; 43239; 43249; 85025; 88305; 88342; 93005; J2003; J2405; J2704; J7121; 43450

== ENCOUNTER → 2024-03-08 | Day surgery (SDC) | payer OTHER, MEDICARE ==
[2024-03-07 11:44] LABS: BASOPHILS # (AUTO) 0.1 (0.0-0.1); BASOPHILS % 0.6 % (0.0-1.0); EOSINOPHILS # (AUTO) 0.2 (0.0-0.4); EOSINOPHILS % 2.3 % (0.0-6.0); HEMATOCRIT 46.2 % (34.2-44.1); HEMOGLOBIN 15.5 g/dL (12.0-16.0); LYMPHOCYTES # (AUTO) 2.4 (1.0-3.2); LYMPHOCYTES % 28.8 % (18.0-39.1); MEAN CORPUSCULAR HEMOGLOBIN 33.2 pg (28-32); MEAN CORPUSCULAR HGB CONC 33.5 g/dL (31-35); MEAN CORPUSCULAR VOLUME 98.9 fL (81-99); MONOCYTES # (AUTO) 0.8 (0.2-0.8); MONOCYTES % 9.7 % (4.4-11.3); NEUTROPHILS # (AUTO) 4.8 (2.1-6.9); NEUTROPHILS % 58.4 % (38.7-80.0); PLATELET COUNT 217 x10e3/uL (140-360); RED BLOOD COUNT 4.67 x10e6/uL (3.6-5.1); RED CELL DISTRIBUTION WIDTH 11.2 % (11.7-14.4); WHITE BLOOD COUNT 8.16 x10e3/uL (4.8-10.8)
[2024-03-07 12:00] LABS: ANION GAP 14.4 mmol/L (8-16); CALCIUM 9.5 mg/dL (8.4-10.2); CREATININE, SERUM 0.85 mg/dL (0.57-1.11); POTASSIUM 4.4 mmol/L (3.5-5.1)
[~2024-03-08] MED LIST changes: +ACETAMINOPHEN 1000 MG/100 ML 100 ML IV ONE; +DEXAMETHASONE SOD PHOS INJ 4 MG/ML SDV ONE; +EPHEDRINE SULFATE INJ 50 MG/ML VIAL ONE; +FAMOTIDINE 20 MG/2 ML VIAL IV ONE; +FENTANYL CITRATE/PF 100MCG/2 ML INJ ONE; -LIDOCAINE HCL 2% LOCAL INJ 5 ML SDV VIAL INJ ONE; +METOCLOPRAMIDE HCL 10 MG/2ML VIAL ONE; +MIDAZOLAM HCL 2 MG/2 ML VIAL ONE; +ONDANSETRON HCL INJ 2MG/ML 2ML 2 MG/ML VIAL ONE; +PHENAZOPYRIDINE HCL 100 MG TAB ONE
[2024-03-08] MEDS: CEFTRIAXONE 1 GM VIAL ONE (07:55)
[2024-03-08] MEDS: LACTATED RINGER'S 1,000 ML ONE (07:56)
[2024-03-08] MEDS: ONDANSETRON HCL INJ 2MG/ML 2ML 2 MG/ML VIAL ONE (08:22)
[2024-03-08 12:15] VITALS: BP 157/96; PULSE 59; RESP 16; O2SAT 94
== END | disposition home or self-care (01) ==
LOC: OR 07:45
PROVIDERS: ATTEND Urology
DX: N30.10 Interstitial cystitis (chronic) without hematuria (principal); R33.9 Retention of urine, unspecified; N32.81 Overactive bladder; N39.46 Mixed incontinence; N81.10 Cystocele, unspecified; N95.2 Postmenopausal atrophic vaginitis; Z96.0 Presence of urogenital implants; N32.89 Other specified disorders of bladder; J44.9 Chronic obstructive pulmonary disease, unspecified; K21.9 Gastro-esophageal reflux disease without esophagitis; I10 Essential (primary) hypertension; I25.10 Atherosclerotic heart disease of native coronary artery without angina pectoris; Z91.040 Latex allergy status; Z91.048 Other nonmedicinal substance allergy status; Z01.812 Encounter for preprocedural laboratory examination; Z01.818 Encounter for other preprocedural examination; Z79.82 Long term (current) use of aspirin; Z79.899 Other long term (current) drug therapy; Z95.5 Presence of coronary angioplasty implant and graft
CPT/HCPCS: 36415; 52260; 71046; 74420; 80048; 85025; 87086; C1758; J0131; J0696; J1100; J2250; J2405; J2704; J2765; J3010; J7121

== ENCOUNTER 2024-06-17 10:08 | Inpatient (IN) | payer OTHER, MEDICARE ==
[2024-06-13 11:53] LABS: BASOPHILS # (AUTO) 0.1 (0.0-0.1); BASOPHILS % 0.5 % (0.0-1.0); EOSINOPHILS # (AUTO) 0.1 (0.0-0.4); EOSINOPHILS % 1.3 % (0.0-6.0); HEMOGLOBIN 16.1 g/dL (12.0-16.0); LYMPHOCYTES # (AUTO) 2.4 (1.0-3.2); LYMPHOCYTES % 25.2 % (18.0-39.1); MEAN CORPUSCULAR HEMOGLOBIN 33.3 pg (28-32); MEAN CORPUSCULAR HGB CONC 35.8 g/dL (31-35); MONOCYTES # (AUTO) 0.8 (0.2-0.8); MONOCYTES % 8.2 % (4.4-11.3); NEUTROPHILS # (AUTO) 6.1 (2.1-6.9); NEUTROPHILS % 64.6 % (38.7-80.0); PLATELET COUNT 232 x10e3/uL (140-360); RED BLOOD COUNT 4.84 x10e6/uL (3.6-5.1); RED CELL DISTRIBUTION WIDTH 11.1 % (11.7-14.4); WHITE BLOOD COUNT 9.51 x10e3/uL (4.8-10.8)
[2024-06-13 12:21] LABS: ANION GAP 13.1 mmol/L (8-16); CREATININE, SERUM 0.83 mg/dL (0.57-1.11); POTASSIUM 4.1 mmol/L (3.5-5.1)
[~2024-06-17] VITALS: Ht 172.7 cm; Wt 65.8 kg
[~2024-06-17 10:08] MED LIST changes: -ACETAMINOPHEN 1000 MG/100 ML 100 ML IV ONE; +CRESTOR40 MG PO; -DEXAMETHASONE SOD PHOS INJ 4 MG/ML SDV ONE; -EPHEDRINE SULFATE INJ 50 MG/ML VIAL ONE; -FAMOTIDINE 20 MG/2 ML VIAL IV ONE; -FENTANYL CITRATE/PF 100MCG/2 ML INJ ONE; +IBUPROFEN200 MG PO; -METOCLOPRAMIDE HCL 10 MG/2ML VIAL ONE; -MIDAZOLAM HCL 2 MG/2 ML VIAL ONE; -ONDANSETRON HCL INJ 2MG/ML 2ML 2 MG/ML VIAL ONE; -PHENAZOPYRIDINE HCL 100 MG TAB ONE; -PROPOFOL IV EMULSION 10 MG/ML 20 ML VIAL ONE; +[UNRECOGNIZED DRUG - OTHER] TD
[2024-06-17] MEDS ORDERED: LIDOCAINE HCL 2% LOCAL INJ 5 ML SDV VIAL INJ ONE (11:40)
[2024-06-17] MEDS ORDERED: FENTANYL CITRATE/PF 100MCG/2 ML INJ ONE ×2 (11:40→14:18)
[2024-06-17] MEDS ORDERED: ROCURONIUM BROMIDE 1 ML IV ONE (11:40)
[2024-06-17] MEDS ORDERED: PROPOFOL IV EMULSION 10 MG/ML 20 ML VIAL ONE (11:40)
[2024-06-17 12:16] VITALS: PULSE 61; RESP 18; O2SAT 98
[2024-06-17] MEDS ORDERED: SEVOFLURANE INHAL SOLN 250 ML PEN BTL ONE (13:12)
[2024-06-17] MEDS ORDERED: DEXAMETHASONE SOD PHOS INJ 4 MG/ML SDV ONE (13:30)
[2024-06-17] MEDS ORDERED: ONDANSETRON HCL INJ 2MG/ML 2ML 2 MG/ML VIAL ONE (13:30)
[2024-06-17] MEDS ORDERED: FAMOTIDINE 20 MG/2 ML VIAL IV ONE (13:30)
[2024-06-17] MEDS ORDERED: METOCLOPRAMIDE HCL 10 MG/2ML VIAL ONE (13:35)
[2024-06-17] MEDS ORDERED: ACETAMINOPHEN 1000 MG/100 ML 100 ML IV ONE (13:40)
[2024-06-17] MEDS ORDERED: EPHEDRINE SULFATE INJ 50 MG/ML VIAL ONE (13:43)
[2024-06-17] MEDS ORDERED: SUGAMMADEX SODIUM 200 MG/2 ML VIAL IV ONE (15:13)
[2024-06-17] MEDS ORDERED: PHENAZOPYRIDINE HCL 100 MG TAB PO PRN (16:00)
[2024-06-17] MEDS ORDERED: ACETAMINOPHEN 1000 MG/100 ML IV PRN (16:00)
[2024-06-17] MEDS ORDERED: DIPHENHYDRAMINE HCL 25 MG CAP PO PRN ×2 (16:00→16:30)
[2024-06-17] MEDS ORDERED: ONDANSETRON HCL INJ 2MG/ML 2ML 2 MG/ML VIAL IV PRN (16:00)
[2024-06-17 16:11] LABS: BASOPHILS # (AUTO) 0.1 (0.0-0.1); BASOPHILS % 0.5 % (0.0-1.0); EOSINOPHILS # (AUTO) 0.1 (0.0-0.4); EOSINOPHILS % 0.9 % (0.0-6.0); HEMATOCRIT 40.2 % (34.2-44.1); HEMOGLOBIN 13.8 g/dL (12.0-16.0); LYMPHOCYTES % 20.3 % (18.0-39.1); MEAN CORPUSCULAR HEMOGLOBIN 33.3 pg (28-32); MEAN CORPUSCULAR HGB CONC 34.3 g/dL (31-35); MEAN CORPUSCULAR VOLUME 97.1 fL (81-99); MONOCYTES # (AUTO) 0.4 (0.2-0.8); MONOCYTES % 4.2 % (4.4-11.3); NEUTROPHILS # (AUTO) 7.2 (2.1-6.9); NEUTROPHILS % 73.7 % (38.7-80.0); PLATELET COUNT 204 x10e3/uL (140-360); RED BLOOD COUNT 4.14 x10e6/uL (3.6-5.1); RED CELL DISTRIBUTION WIDTH 11.2 % (11.7-14.4); WHITE BLOOD COUNT 9.74 x10e3/uL (4.8-10.8)
[2024-06-17] MEDS: CLINDAMYCIN 600MG / 50ML 50 ML IV ONE (16:28)
[2024-06-17] MEDS: LACTATED RINGER'S 1,000 ML ONE (16:28)
[2024-06-17] MEDS: GENTAMICIN 80MG/NS 100 ML 200 ML IV ONE (16:28)
[2024-06-17] MEDS: PIPERACILLIN/TAZOBACTAM 3.375 GM VIAL ONE (16:28)
[2024-06-17] MEDS: ALBUTEROL/IPRATROPIUM 3 ML NEB ONE (16:29)
[2024-06-17] MEDS ORDERED: ALBUTEROL/IPRATROPIUM 3 ML NEB NEB PRN (16:30)
[2024-06-17] MEDS ORDERED: SIMETHICONE 80 MG CHEW PO PRN (16:30)
[2024-06-17] MEDS ORDERED: DEXTROSE 50% SYRINGE 50 ML IV PRN (16:30)
[2024-06-17] MEDS ORDERED: ACETAMINOPHEN 325 MG TAB PO PRN (16:30)
[2024-06-17] MEDS ORDERED: HYDRALAZINE HCL 20 MG/ML VIAL IV PRN (16:30)
[2024-06-17] MEDS ORDERED: MECLIZINE HCL 12.5 MG TAB PO PRN (16:30)
[2024-06-17] MEDS ORDERED: DOCUSATE SODIUM 100 MG CAP PO PRN (16:30)
[2024-06-17] MEDS ORDERED: POTASSIUM CHLORIDE 20 MEQ TAB CR PO PRN (16:30)
[2024-06-17 16:41] LABS: ANION GAP 13.4 mmol/L (8-16); CALCIUM 8.4 mg/dL (8.4-10.2); CREATININE, SERUM 0.87 mg/dL (0.57-1.11); POTASSIUM 4.4 mmol/L (3.5-5.1)
[2024-06-17] MEDS ORDERED: POTASSIUM CHLORIDE 20 MEQ TAB CR PO ONE (16:45)
[2024-06-17 16:49] VITALS: BP 166/88; PULSE 61; RESP 16; TEMP 97; O2SAT 99
[2024-06-17] MEDS: ACETAMINOPHEN/CODEINE 300MG - 30MG TAB PO PRN (17:31)
[2024-06-17] MEDS: SENNA-S TABLET PO SCH (17:33)
[2024-06-17] MEDS: CARVEDILOL 12.5 MG TAB PO SCH (17:33)
[2024-06-17] MEDS: SODIUM CHLORIDE 0.9% 1000ML 1,000 ML IV SCH (17:34)
[2024-06-17 18:13] VITALS: BP 166/81; PULSE 61; RESP 16; TEMP 97; O2SAT 99
[2024-06-17 19:12] VITALS: BP 128/85; PULSE 53; RESP 16; TEMP 97.8; O2SAT 100
[2024-06-17] MEDS: ONDANSETRON HCL INJ 2MG/ML 2ML 2 MG/ML VIAL IV PRN (21:55)
[2024-06-17] MEDS: Morphine 2mg Syringe 2 MG/ML SYR IV PRN (21:55)
[2024-06-17 22:48] VITALS: BP 132/80; PULSE 53; RESP 17; TEMP 98.2; O2SAT 99
[2024-06-18] VITALS (7 sets, daily range): BP systolic 147–165; BP diastolic 75–88; PULSE 54–69; RESP 15–20; TEMP 97.2–98.3; O2SAT 98–99
[2024-06-18 06:29] LABS: BASOPHILS % 0.1 % (0.0-1.0); EOSINOPHILS % 0.1 % (0.0-6.0); HEMATOCRIT 34.8 % (34.2-44.1); HEMOGLOBIN 12.4 g/dL (12.0-16.0); LYMPHOCYTES # (AUTO) 1.5 (1.0-3.2); LYMPHOCYTES % 8.9 % (18.0-39.1); MEAN CORPUSCULAR HEMOGLOBIN 33.5 pg (28-32); MEAN CORPUSCULAR HGB CONC 35.6 g/dL (31-35); MEAN CORPUSCULAR VOLUME 94.1 fL (81-99); MONOCYTES # (AUTO) 1.4 (0.2-0.8); MONOCYTES % 8.2 % (4.4-11.3); NEUTROPHILS # (AUTO) 13.7 (2.1-6.9); NEUTROPHILS % 82.1 % (38.7-80.0); PLATELET COUNT 187 x10e3/uL (140-360); WHITE BLOOD COUNT 16.72 x10e3/uL (4.8-10.8)
[2024-06-18 07:00] LABS: ANION GAP 13.2 mmol/L (8-16); CALCIUM 8.2 mg/dL (8.4-10.2); CREATININE, SERUM 0.81 mg/dL (0.57-1.11); POTASSIUM 4.2 mmol/L (3.5-5.1)
[2024-06-18 07:15] LABS: PHOSPHORUS 5.1 MG/DL (2.3-4.7)
[2024-06-18 07:36] LABS: THYROID STIMULATING HORMONE 0.489 uIU/mL (0.350-4.940)
[2024-06-18] MEDS: MIDODRINE HCL 5 MG TABLET PO SCH (08:00)
[2024-06-18] MEDS: SODIUM CHLORIDE 0.9% 500ML 500 ML ONE (08:20)
[2024-06-18] MEDS: CARVEDILOL 12.5 MG TAB PO SCH (10:21)
[2024-06-18] MEDS: SENNA-S TABLET PO SCH (10:22)
[2024-06-18] MEDS ORDERED: BUDESONIDE/FORMOTEROL 160/4.5MCG INHALER INH SCH (15:15)
[2024-06-19] VITALS (11 sets, daily range): BP systolic 140–177; BP diastolic 74–99; PULSE 55–72; RESP 16–20; TEMP 97.4–97.8; O2SAT 95–100
[2024-06-19 07:14] LABS: BASOPHILS % 0.2 % (0.0-1.0); EOSINOPHILS # (AUTO) 0.1 (0.0-0.4); EOSINOPHILS % 0.6 % (0.0-6.0); HEMATOCRIT 31.1 % (34.2-44.1); HEMOGLOBIN 10.8 g/dL (12.0-16.0); LYMPHOCYTES # (AUTO) 3.2 (1.0-3.2); LYMPHOCYTES % 28.9 % (18.0-39.1); MEAN CORPUSCULAR HEMOGLOBIN 33.1 pg (28-32); MEAN CORPUSCULAR HGB CONC 34.7 g/dL (31-35); MEAN CORPUSCULAR VOLUME 95.4 fL (81-99); MONOCYTES # (AUTO) 1.1 (0.2-0.8); MONOCYTES % 9.5 % (4.4-11.3); NEUTROPHILS # (AUTO) 6.8 (2.1-6.9); NEUTROPHILS % 60.4 % (38.7-80.0); PLATELET COUNT 166 x10e3/uL (140-360); RED BLOOD COUNT 3.26 x10e6/uL (3.6-5.1); RED CELL DISTRIBUTION WIDTH 11.6 % (11.7-14.4); WHITE BLOOD COUNT 11.23 x10e3/uL (4.8-10.8)
[2024-06-19 07:36] LABS: ANION GAP 10.9 mmol/L (8-16); CALCIUM 7.9 mg/dL (8.4-10.2); CREATININE, SERUM 0.79 mg/dL (0.57-1.11); POTASSIUM 3.9 mmol/L (3.5-5.1)
[2024-06-19] MEDS: PANTOPRAZOLE SOD 40 MG TABEC PO SCH (09:26)
[2024-06-19] MEDS: FLUTICASONE PROPIONATE NASAL SPRAY NS SCH (09:39)
[2024-06-20 03:18] VITALS: BP 167/83; PULSE 61; RESP 18; TEMP 97.8; O2SAT 95
[2024-06-20 06:38] VITALS: PULSE 74; RESP 20; O2SAT 95
[2024-06-20 07:38] VITALS: BP 172/88; PULSE 58; RESP 16; TEMP 97.2; O2SAT 100
[2024-06-20 08:59] LABS: BASOPHILS % 0.4 % (0.0-1.0); EOSINOPHILS # (AUTO) 0.2 (0.0-0.4); EOSINOPHILS % 1.5 % (0.0-6.0); HEMATOCRIT 34.5 % (34.2-44.1); HEMOGLOBIN 11.9 g/dL (12.0-16.0); LYMPHOCYTES # (AUTO) 2.6 (1.0-3.2); LYMPHOCYTES % 25.1 % (18.0-39.1); MEAN CORPUSCULAR HEMOGLOBIN 33.2 pg (28-32); MEAN CORPUSCULAR HGB CONC 34.5 g/dL (31-35); MEAN CORPUSCULAR VOLUME 96.4 fL (81-99); MONOCYTES % 10.1 % (4.4-11.3); NEUTROPHILS # (AUTO) 6.5 (2.1-6.9); NEUTROPHILS % 62.5 % (38.7-80.0); PLATELET COUNT 193 x10e3/uL (140-360); RED BLOOD COUNT 3.58 x10e6/uL (3.6-5.1); RED CELL DISTRIBUTION WIDTH 11.4 % (11.7-14.4); WHITE BLOOD COUNT 10.34 x10e3/uL (4.8-10.8)
[2024-06-20 09:25] VITALS: BP 172/88; PULSE 73; RESP 16; TEMP 97.2; O2SAT 100
[2024-06-20 09:28] LABS: ANION GAP 11.9 mmol/L (8-16); CALCIUM 8.5 mg/dL (8.4-10.2); CREATININE, SERUM 0.8 mg/dL (0.57-1.11); POTASSIUM 3.9 mmol/L (3.5-5.1)
[2024-06-20 11:32] VITALS: BP 160/81; PULSE 54; RESP 16; TEMP 98.1; O2SAT 96
== END 2024-06-20 15:17 | disposition home or self-care (01) | DRG 664 ==
LOC: OR 10:08 → PACU V 15:12 → MED/SURG3 16:47
PROVIDERS: ADMIT Internal Medicine; ATTEND Internal Medicine
PROC: 0T9B70Z Drainage of Bladder with Drainage Device, Via Natural or Artificial Opening (ICD-10-PCS; 2024-06-17)
PROC: 0TSD0ZZ Reposition Urethra, Open Approach (ICD-10-PCS; principal; 2024-06-17 13:19)
PROC: 0TPD0JZ Removal of Synthetic Substitute from Urethra, Open Approach (ICD-10-PCS; 2024-06-17 13:19)
DX: T83.722A Exposure of implanted urethral mesh into urethra, initial encounter (principal); N32.0 Bladder-neck obstruction; R32 Unspecified urinary incontinence; E78.5 Hyperlipidemia, unspecified; I10 Essential (primary) hypertension; I25.10 Atherosclerotic heart disease of native coronary artery without angina pectoris; J44.9 Chronic obstructive pulmonary disease, unspecified; Z79.82 Long term (current) use of aspirin; Z79.51 Long term (current) use of inhaled steroids; Z95.5 Presence of coronary angioplasty implant and graft; Z91.040 Latex allergy status; Z82.49 Family history of ischemic heart disease and other diseases of the circulatory system
CPT/HCPCS: 36415; 74420; 80048; 83735; 84100; 84443; 85025; 88304; 93005; 94640; 94799; 99252; C1758; C1763; J1100; J1580; J2003; J2270; J2405; J2470; J2543; J2765; J7030; J7040

== ENCOUNTER 2024-06-25 23:27 | Emergency (ER) | payer OTHER, MEDICARE ==
[~2024-06-25] VITALS: Ht 172.7 cm; Wt 68.0 kg
[2024-06-26 00:06] VITALS: PULSE 76; RESP 16; TEMP 98.3
[2024-06-26 00:31] LABS: BASOPHILS % 0.3 % (0.0-1.0); EOSINOPHILS # (AUTO) 0.3 (0.0-0.4); EOSINOPHILS % 2.6 % (0.0-6.0); HEMATOCRIT 35.6 % (34.2-44.1); HEMOGLOBIN 12.6 g/dL (12.0-16.0); LYMPHOCYTES # (AUTO) 2.3 (1.0-3.2); LYMPHOCYTES % 23.2 % (18.0-39.1); MEAN CORPUSCULAR HEMOGLOBIN 33.2 pg (28-32); MEAN CORPUSCULAR HGB CONC 35.4 g/dL (31-35); MEAN CORPUSCULAR VOLUME 93.9 fL (81-99); MONOCYTES % 9.9 % (4.4-11.3); NEUTROPHILS # (AUTO) 6.4 (2.1-6.9); NEUTROPHILS % 63.6 % (38.7-80.0); PLATELET COUNT 276 x10e3/uL (140-360); RED BLOOD COUNT 3.79 x10e6/uL (3.6-5.1); RED CELL DISTRIBUTION WIDTH 11.9 % (11.7-14.4); WHITE BLOOD COUNT 10.06 x10e3/uL (4.8-10.8)
[2024-06-26 00:46] LABS: BILIRUBIN,URINE NEGATIVE (NEGATIVE); CLARITY,URINE CLEAR (CLEAR); COLOR,URINE YELLOW (YELLOW); GLUCOSE, URINE NEGATIVE (NEGATIVE); KETONES,URINE NEGATIVE (NEGATIVE); LEUKOCYTE ESTERASE ,URINE NEGATIVE (NEGATIVE); NITRITE,URINE NEGATIVE (NEGATIVE); PH,URINE 6 (5 - 7); PROTEIN,URINE DIPSTICK 1+ (NEGATIVE); URINE UROBILINOGEN 0.2 mg/dL (0.2 - 1)
[2024-06-26 00:47] LABS: BACTERIA,URINE MANY /HPF; EPITHELIAL CELLS,URINE MODERATE /LPF; RBC,URINE 21-50 /HPF (0-5)
[2024-06-26 00:48] LABS: CALCIUM OXALATE CRYSTALS,UR MODERATE (FEW)
[2024-06-26 00:57] LABS: ANION GAP 14.8 mmol/L (8-16); CALCIUM 9.1 mg/dL (8.4-10.2); CREATININE, SERUM 0.87 mg/dL (0.57-1.11); POTASSIUM 3.8 mmol/L (3.5-5.1)
[2024-06-26] MEDS ORDERED: IOPAMIDOL 370 MG/ML 100 ML INFUS..BTL INJ ONE (01:03)
[2024-06-26] MEDS: ONDANSETRON HCL INJ 2MG/ML 2ML 2 MG/ML VIAL IV STA (01:06)
[2024-06-26] MEDS: Morphine 4mg INJECTION 4 MG/ML INJ IV STA (01:06)
[2024-06-26] MEDS ORDERED: AMOX TR-K CLV1 EAC2 PO (02:02)
[2024-06-26 02:32] VITALS: BP 178/99; O2SAT 99
== END 2024-06-26 02:15 | disposition home or self-care (01) ==
LOC: ER 23:40
DX: G89.18 Other acute postprocedural pain (principal); K57.90 Diverticulosis of intestine, part unspecified, without perforation or abscess without bleeding; J90 Pleural effusion, not elsewhere classified; J98.11 Atelectasis; I10 Essential (primary) hypertension; J44.9 Chronic obstructive pulmonary disease, unspecified; I50.9 Heart failure, unspecified; K21.9 Gastro-esophageal reflux disease without esophagitis; I25.2 Old myocardial infarction; Z95.5 Presence of coronary angioplasty implant and graft; Z85.828 Personal history of other malignant neoplasm of skin
CPT/HCPCS: 36415; 74177; 80048; 81001; 85025; 87086; 99284; J2270; J2405; Q9967

== ENCOUNTER → 2024-08-06 | Outpatient (REF) | payer OTHER, MEDICARE ==
[~2024-08-06] MED LIST changes: +AMOX TR-K CLV1 EAC2 PO
== END ==
LOC: MAMMO 08:57
PROVIDERS: ATTEND Internal Medicine
DX: Z12.31 Encounter for screening mammogram for malignant neoplasm of breast (principal)
CPT/HCPCS: 77067

== ENCOUNTER → 2024-11-07 | Day surgery (SDC) | payer OTHER, MEDICARE ==
[2024-10-30 13:07] LABS: BASOPHILS % 0.5 % (0.0-1.0); EOSINOPHILS % 1.8 % (0.0-6.0); LYMPHOCYTES % 22.3 % (18.0-39.1); MONOCYTES % 7.5 % (4.4-11.3); NEUTROPHILS % 67.5 % (38.7-80.0); RED CELL DISTRIBUTION WIDTH 11.4 % (11.7-14.4)
[~2024-11-07] MED LIST changes: +D3-5000125 MCG; +FENTANYL CITRATE/PF 100MCG/2 ML INJ ONE; +FOLIC ACID0.4 MG PO; +GLYCOPYRROLATE INJ 0.2 MG/ML VIAL ONE; +LIDOCAINE HCL 2% LOCAL INJ 5 ML SDV VIAL INJ ONE; +MICARDIS40 MG PO; +MIRABEGRON ER25 MG PO; +PROPOFOL IV EMULSION 10 MG/ML 20 ML VIAL ONE
[2024-11-07] MEDS: LACTATED RINGER'S 1,000 ML ONE (07:40)
[2024-11-07 08:18] VITALS: TEMP 97.8
[2024-11-07 08:30] VITALS: BP 119/62; PULSE 60; RESP 15; O2SAT 97
== END | disposition home or self-care (01) ==
LOC: OR 05:45
PROVIDERS: ATTEND Family Medicine
DX: R13.10 Dysphagia, unspecified (principal); K29.50 Unspecified chronic gastritis without bleeding; K21.9 Gastro-esophageal reflux disease without esophagitis; Z98.890 Other specified postprocedural states; I25.119 Atherosclerotic heart disease of native coronary artery with unspecified angina pectoris; I25.2 Old myocardial infarction; I11.0 Hypertensive heart disease with heart failure; I50.9 Heart failure, unspecified; E78.5 Hyperlipidemia, unspecified; J44.9 Chronic obstructive pulmonary disease, unspecified; M06.9 Rheumatoid arthritis, unspecified; M19.90 Unspecified osteoarthritis, unspecified site; N20.0 Calculus of kidney; F17.200 Nicotine dependence, unspecified, uncomplicated; Z91.040 Latex allergy status; Z91.048 Other nonmedicinal substance allergy status; Z01.812 Encounter for preprocedural laboratory examination; Z79.82 Long term (current) use of aspirin; Z79.899 Other long term (current) drug therapy; Z68.22 Body mass index [BMI] 22.0-22.9, adult; Z95.5 Presence of coronary angioplasty implant and graft
CPT/HCPCS: 36415; 43233; 85025; J2003